=== PATIENT | male | born 1950 | race Caucasian/White ===

== ENCOUNTER → 2018-11-17 | Outpatient (CLI) | payer OTHER, MEDICARE ==
[~2018-11-17] MED LIST: CELE200 PO; LORA1 PO; METPHE20 PO; MORP15ER PO; PROC10 PO; QUALAQUIN PO; VARDENAFIL PO; [UNRECOGNIZED DRUG - REMARK]
[2018-11-18 03:07] LABS: HBSAG SCREEN Negative (Negative); HCV ANTIBODY >11.0 (0.0-0.9); HEP A AB, IGM Negative (Negative); HEP B CORE AB, IGM Negative (Negative)
== END | disposition home or self-care (01) ==
LOC: OLS 11:40 → LAB SHORT 11:40 → LAB FUT 11-10 16:15
PROVIDERS: Orthopaedic Surgery
DX: B18.2 Chronic viral hepatitis C (principal); Z94.4 Liver transplant status
CPT/HCPCS: 36415; 80074; 86803

== ENCOUNTER 2020-02-13 00:22 | Day surgery (SDC) | payer MEDICARE, OTHER | END 2020-02-13 22:55 | disposition home or self-care (01) | LOC: ATC 00:22 | DX: C83.38 Diffuse large B-cell lymphoma, lymph nodes of multiple sites (principal); E11.9 Type 2 diabetes mellitus without complications; G47.33 Obstructive sleep apnea (adult) (pediatric); Z94.4 Liver transplant status; Z79.4 Long term (current) use of insulin; Z79.899 Other long term (current) drug therapy; Z88.5 Allergy status to narcotic agent; Z91.041 Radiographic dye allergy status; Z87.891 Personal history of nicotine dependence | CPT/HCPCS: J1642 ==

== ENCOUNTER 2020-03-26 01:56 | Inpatient (IN) | payer MEDICARE, OTHER ==
[~2020-03-26] VITALS: Ht 182.9 cm; Wt 119.5 kg
[~2020-03-26 01:56] MED LIST changes: +ACYC800 PO; +ALLO300 PO; +ASPI81CH PO; +ATOR20 PO; +BASAGLAR K100 UNIT/1 SC; +CALCIUM CIT 311 EACH PO; +CEFD300 PO; +CLOP75 PO; +Cymbalta20 MG PO; +DULO60 PO; +GLIM4 PO; +JARDIANCE25 MG PO; +LIDO700A20 TOP; +METF500 PO; +NOVOLOG FL100 UNIT/3 SC; +ONDA8 PO; +OXYC10ER PO; +OXYC5 PO; +PEPCID40 MG PO; +POLYETHYLENE G500 G1 PO; +PRED20 PO; +PROBIOTIC PO; +PROC5 PO; +PROGRAF0.5 MG PO; +Prochlorperazin10 MG PO; +SENN187 PO; +TACR1 PO; +Vitamin D2000 UNIT PO
[2020-03-26 03:07] LABS: BASOPHILS ABSOLUTE AUTO 0.09 K/mm3 (0.00-0.23); BASOPHILS PERCENT AUTO 1 % (0-2); EOSINOPHILS ABSOLUTE AUTO 0.01 K/mm3 (0.00-0.68); EOSINOPHILS PERCENT AUTO 0 % (0-6); Hematocrit 34.6 % (37.0-53.0); Hemoglobin 11.3 g/dL (13.5-17.5); IMMATURE GRAN ABSOLUTE AUTO 1.15 K/mm3 (0.00-0.10); IMMATURE GRAN PERCENT AUTO 9 % (0-1); LYMPHOCYTES ABSOLUTE AUTO 0.24 K/mm3 (0.84-5.20); LYMPHOCYTES PERCENT AUTO 2 % (21-46); MONOCYTES PERCENT AUTO 6 % (4-13); Mean Corpuscular HGB 30.3 pg (26.0-34.0); Mean Corpuscular HGB Conc 32.7 g/dL (31.5-36.5); Mean Corpuscular Volume 93 fL (80-100); Mean Platelet Volume 10.8 fL (9.1-12.4); NEUTROPHILS ABSOLUTE AUTO 10.42 K/mm3 (1.96-9.15); NEUTROPHILS PERCENT AUTO 82 % (41-73); NRBC ABSOLUTE 0.11 K/mm3 (0.00-0.02); NRBC Auto 0.9 /100 WBC (0.0-0.2); Platelet Count 101 K/mm3 (150-400); RDW Coefficient Variation 17.1 % (11.7-14.2); RDW Standard Deviation 54.2 fL (35.1-46.3); Red Blood Cell Count 3.73 M/mm3 (4.30-5.90); White Blood Cell Count 12.71 K/mm3 (4.00-11.30)
[2020-03-26 03:27] LABS: Alanine Aminotransfer (ALT/SGP 33 U/L (12-78); Albumin/Globulin Ratio 0.9 (0.8-1.8); Alk Phos 210 U/L (50-136); Anion Gap 10 mmol/L (6-16); Aspartate Aminotrans (AST/SGOT 33 U/L (12-37); Bilirubin, Total 0.7 mg/dL (0.1-1.0); Blood Urea Nitrogen 15 mg/dL (8-24); Bun/Creatinine Ratio 16.8 (12.0-20.0); CO2, Blood 24 mmol/L (21-32); Calcium, Blood 8.6 mg/dL (8.5-10.1); Chloride, Blood 105 mmol/L (98-108); Globulin, Blood 3.4 g/dL (2.2-4.0); Glomerular Filtration Rate >60 (60-); Glucose, Blood 226 mg/dL (70-99); Potassium, Blood 3.8 mmol/L (3.5-5.5); Sodium, Blood 139 mmol/L (136-145); Total Protein, Blood 6.4 g/dL (6.4-8.2); Troponin I 0.015 ng/mL (0.000-0.040)
[2020-03-26 03:29] LABS: BAND PERCENT MAN 2 % (0-8); BASOPHILS PERCENT MAN 0 % (0-2); EOSINOPHILS PERCENT MAN 0 % (0-6); LYMPHOCYTES PERCENT MAN 4 % (21-46); METAMYELOCYTE ABSOLUTE MAN 0.12 K/mm3 (0.00-0.00); METAMYELOCYTE PERCENT MAN 1 % (0-0); MONOCYTES PERCENT MAN 4 % (4-13); NEUTROPHILS ABSOLUTE MAN 11.56 K/mm3 (1.96-9.15); SEG NEUTROPHILS PERCENT MAN 89 % (41-73); TOTAL CELLS COUNTED 100
[2020-03-26 05:03] LABS: Influenza A, PCR Negative (NEGATIVE); Influenza B, PCR Negative (NEGATIVE); Resp Syncytial Virus, PCR Negative (NEGATIVE); SARS-Cov-2 (COVID-19) PCR, MMC Negative (NEGATIVE)
[2020-03-26 05:29] LABS: Source, Urine Clean Catch
[2020-03-26 05:37] LABS: Appearance, Urine Clear (Clear); Bilirubin, Urine Neg (Neg); Blood, Urine 1+ (Neg); Color, Urine Yellow (P-Yellow); Glucose Qualitative, Urine 4+ (Neg); Ketones, Urine 2+ (Neg); Leukocyte Esterase, Urine Neg (Neg); Nitrite, Urine Neg (Neg); Protein, Urine 1+ (Neg); Specific Gravity, Urine 1.015 (1.003-1.022); Urobilinogen, Urine NORM (Normal)
[2020-03-26 05:55] LABS: Bacteria Not Seen /hpf; Red Blood Cells, Urine 0-2 /hpf (0-2); Squamous Epithelial Cells Rare /hpf (Few); White Blood Cells, Urine 0-2 /hpf (0-5)
--- NOTE | 2020-03-26 06:44 | NUR ---
PT TO ICU 12 FROM ED. PT IS ON 6LNC. SATTING WELL. VSS, SBP IN THE 130S, HR 80S. PT HAS A MEDIPORT THAT IS CURRENTLY ACCESSED. PT NEEDS A PE STUDY HOWEVER UNSURE IF MEDIPORT IS A POWER PORT. PT WILL NEED LINE ACCESS. ATTEMPTED FOR IV ACCESS X 1. UNSUCCESSFUL. LABS WERE SENT VIA MEDIPORT. PT IS A&O. COOPERATIVE WITH CARE. PER ASA AND PLAVIX ARE BEING HELD D/T PROCEDURE LATER THIS WEEK WITH [facility] TO DETERMINE POSS CA KRISH. WILL PASS REPORT TO ONCOMING RN
--- NOTE | 2020-03-26 08:40 | NUR ---
ASSUMED CARE / DR SALINAS: REPORT RECEIVED FROM JOCELYN Malone RN. ASSUMED CARE OF THIS PT AT APPROX 0700. ON ASSESSMENT, THE PT IS AWAKE, A&O. HE IS PLEASANT & COOPERATIVE W/ CARE. C/O PAIN TO ABD, R SIDE/ FLANK THAT IS WORSENED W/ PALPATION. LS ARE DIM IN BASES, COARSENESS NOTED TO LLL. PT ON RA W/ O2 SATS > 92%. DOES NOT WEAR HOME O2. MONITOR SHOWS SR W/ FIRST DEGREE HB, HR 80s, BP STABLE. PT HAS NO CURRENT GI COMPLAINTS, STS FEELING NAUSEOUS W/ PO INTAKE PRIOR TO ADMISSION. VOIDS W/O DIFFICULTY USING URINAL AT BEDSIDE. THE PT IS AMBULATORY & IS ABLE TO TRANSFER W/ MIN ASSIST. CALLS APPROPRIATELY. SKIN CONDITION OVERALL CDI. BRUISING NOTED TO R SHOULDER & LOWER BACK, ABRASION TO L ELBOW R/T FALL AT HOME. SKIN OVERALL INTACT. PROVIDER AT BEDSIDE TO ALEX PT. INSULIN REGIMEN HAS BEEN DISCUSSED & ORDERS HAVE BEEN UPDATED. SHE STS PT CAN START A CLEAR LIQUID DIET & THAT LOVENOX CAN BE GIVEN THIS ADMISSION DESPITE POSSIBLE LUMBAR PUNCTURE SCHEDULED FOR END OF THE WEEK. SHE IS OKAY THAT THE PT HAS NO VASCULAR ACCESS ASIDE FROM MEDIPORT & WILL BE DISCONTINUING CT-PE STUDY ORDERS & PLACING CT W/O CONTRAST ORDERS. WILL CONTINUE TO MONITOR & UPDATE NEEDED.
--- NOTE | 2020-03-26 10:27 | NUR ---
Patient provided student nurse permission to assist in caring for him today 03/16/20.
[2020-03-26 10:56] LABS: International Normalized Ratio 1.07; Prothrombin Time Results 11.4 Sec (9.7-11.5)
--- NOTE | 2020-03-26 12:04 | NUR ---
DR SALINAS UPDATE: CALL TO PROVIDER REGARDING PT DIET ORDERS. HE STS HE WILL NOT EAT ANY OF THE CLEAR LIQUID DIET OPTIONS. PROVIDER HAS REVIEWED PT's CT SCAN & IS OKAY FOR DIET TO BE ADVANCED TO ADA. THIS RN HAS CONTINUED TO HOLD LOVENOX THIS AM R/T NEW ORDERS FOR CT-LUMBAR PUNCTURE PLACED BY DR SALINAS. INSULIN GLARGINE ALSO HELD R/T PT's GLUCOSE LEVEL DECREASING SIGNIFICANTLY SINCE AM LABS & HIS STATED LACK OF APPETITE/ LOW PROBABILITY OF TAKING PO INTAKE.
--- NOTE | 2020-03-26 12:18 | NUR ---
TRANSFER TO MEDICAL FLOOR: REPORT HAS BEEN GIVEN TO EMY Olvera RN TO ASSUME CARE. CHART, MEDS & ALL BELONGINGS HAVE BEEN TAKEN TO ROOM 334 W/ PT. PT TAKEN OUT VIA WC BY BHARATHI BENTLEY & KEVIN, BRIDGE ATTACHER, AT APPROX 1215. PT's JORDON HAS BEEN CONTACTED & MADE AWARE OF TX BY THIS RN.
[2020-03-26] MEDS ORDERED: METO25ER PO (16:40)
[2020-03-26] MEDS ORDERED: LORA10ER PO (16:42)
[2020-03-26] MEDS ORDERED: PANT40 PO (16:43)
[2020-03-26] MEDS ORDERED: MAGNESIUM OXID500 MG PO (16:51)
[2020-03-26] MEDS ORDERED: Levitra20 MG PO (16:52)
[2020-03-26] MEDS ORDERED: LEVO750 PO (16:54)
[2020-03-26] MEDS ORDERED: HYOS.125 SL (16:56)
[2020-03-26] MEDS ORDERED: ALBU8HFA2 INH (16:59)
[2020-03-26] MEDS ORDERED: CLOB.05TO TOP (17:02)
--- NOTE | 2020-03-26 17:02 | NUR ---
SHIFT SUMMARY PATIENT ALERT AND ORIENTED THROUGHOUT THIS SHIFT. PATIENT TO THE FLOOR FROM THE ICU MID-SHIFT. PATIENT TO THE FLOOR VIA WHEELCHAIR. PATIENT MEDICATED THROUGHOUT THIS SHIFT FOR PAIN IN THE MID-ABDOMEN. PATIENT IS INDEPENDENT IN THE ROOM. PATIENT REMAINS ON IV ANTIBIOTICS THROUGHOUT THIS SHIFT. PATIENT CURRENTLY SITTING UP IN BED WATCHING TELEVISION.
[2020-03-26] MEDS ORDERED: Masophen325 MG PO (17:04)
[2020-03-26] MEDS ORDERED: NEXAFED30 MG PO (17:05)
--- NOTE | 2020-03-27 04:43 | NUR ---
SHIFT SUMMARY NO ACUTE CHANGES THIS SHIFT, MEDICATED FOR PAIN PER MAR, SLEPT ON/OFF T/O THE NIGHT, PT UP WATCHING TV AT THIS TIME, CALL LIGHT IN REACH, WILL CONT TO MONITOR UNTIL REPORT GIVEN TO DAY RN.
[2020-03-27 05:29] LABS: Hematocrit 31.1 % (37.0-53.0); Hemoglobin 9.8 g/dL (13.5-17.5); Mean Corpuscular HGB 29.7 pg (26.0-34.0); Mean Corpuscular HGB Conc 31.5 g/dL (31.5-36.5); Mean Corpuscular Volume 94 fL (80-100); Mean Platelet Volume 10.8 fL (9.1-12.4); NRBC ABSOLUTE 0.04 K/mm3 (0.00-0.02); NRBC Auto 0.5 /100 WBC (0.0-0.2); Platelet Count 91 K/mm3 (150-400); RDW Standard Deviation 54.8 fL (35.1-46.3); White Blood Cell Count 8.06 K/mm3 (4.00-11.30)
[2020-03-27 05:51] LABS: Alanine Aminotransfer (ALT/SGP 30 U/L (12-78); Albumin, Blood 2.6 g/dL (3.4-5.0); Albumin/Globulin Ratio 0.9 (0.8-1.8); Alk Phos 171 U/L (50-136); Anion Gap 7 mmol/L (6-16); Aspartate Aminotrans (AST/SGOT 29 U/L (12-37); Bilirubin, Total 0.8 mg/dL (0.1-1.0); Blood Urea Nitrogen 14 mg/dL (8-24); CO2, Blood 26 mmol/L (21-32); Calcium, Blood 8.2 mg/dL (8.5-10.1); Chloride, Blood 108 mmol/L (98-108); Creatinine, Blood 0.78 mg/dL (0.60-1.20); Glomerular Filtration Rate >60 (60-); Glucose, Blood 142 mg/dL (70-99); Potassium, Blood 3.9 mmol/L (3.5-5.5); Sodium, Blood 141 mmol/L (136-145); Total Protein, Blood 5.6 g/dL (6.4-8.2)
[2020-03-27 05:53] LABS: BAND PERCENT MAN 4 % (0-8); BASOPHILS PERCENT MAN 0 % (0-2); EOSINOPHILS ABSOLUTE MAN 0.24 K/mm3 (0.00-0.68); EOSINOPHILS PERCENT MAN 3 % (0-6); LYMPHOCYTES ABSOLUTE MAN 0.48 K/mm3 (0.84-5.20); LYMPHOCYTES PERCENT MAN 6 % (21-46); METAMYELOCYTE ABSOLUTE MAN 0.16 K/mm3 (0.00-0.00); METAMYELOCYTE PERCENT MAN 2 % (0-0); MONOCYTES ABSOLUTE MAN 0.72 K/mm3 (0.16-1.47); MONOCYTES PERCENT MAN 9 % (4-13); NEUTROPHILS ABSOLUTE MAN 6.44 K/mm3 (1.96-9.15); SEG NEUTROPHILS PERCENT MAN 76 % (41-73); TOTAL CELLS COUNTED 100
[2020-03-27] MEDS ORDERED: OXYCONTIN20 M1 PO (08:30)
[2020-03-27] MEDS ORDERED: OXAYDO5 M1 PO (08:31)
[2020-03-27] MEDS ORDERED: GUAI600T33 PO (11:16)
[2020-03-27] MEDS ORDERED: LEVO750 PO (11:16)
--- NOTE | 2020-03-27 15:10 | NUR ---
DISCHARGE PT IS A&O. PT ABLE TO MAKE NEEDS KNOWN AND INDEPENDENT IN ROOM. AT START OF SHIFT PT COMPLAINED OF PAIN. MEDICATED PER EMAR. WHEN DR WAS ROUNDING, DR NOTIFIED OF HOME MEDICATION REGEMENT, DR CHANGED ORDERS TO MATCH, HOME ORDERS. PT APPRICIATED THE CHANGE. WENT OVER DC PACKET WITH PT. DARNELL ROMAN DEACCESSED METAPORT. PT TAKEN DOWN STAIRS VIA WHEELCHAIR. PT IS AWARE OF SCHEDULE APPOINTMENTS.
== END 2020-03-27 13:15 | disposition home or self-care (01) | DRG 871 ==
LOC: ER 01:56 → ERHOLD 04:22 → ICUW 05:32 → MEDS 12:14
PROVIDERS: Emergency Medicine; ADMIT Internal Medicine
DX: A41.9 Sepsis, unspecified organism (principal); J96.01 Acute respiratory failure with hypoxia; J18.9 Pneumonia, unspecified organism; C85.10 Unspecified B-cell lymphoma, unspecified site; Z94.4 Liver transplant status; Z86.73 Personal history of transient ischemic attack (TIA), and cerebral infarction without residual deficits; B18.2 Chronic viral hepatitis C; Z20.822 Contact with and (suspected) exposure to COVID-19; Z85.05 Personal history of malignant neoplasm of liver; Z87.891 Personal history of nicotine dependence; Z85.47 Personal history of malignant neoplasm of testis; I25.10 Atherosclerotic heart disease of native coronary artery without angina pectoris; Z95.1 Presence of aortocoronary bypass graft; E11.65 Type 2 diabetes mellitus with hyperglycemia
CPT/HCPCS: 0241U; 36415; 71045; 71250; 73030; 74176; 80053; 81001; 82947; 83605; 83735; 83880; 84484; 85025; 85379; 85610; 87040; 96365; 96375; 99285-25; A9270; J1170; J1642; J1885; J1956; J2543; J3010; J7030; J7507

== ENCOUNTER 2020-11-20 16:40 | Emergency (ER) | payer MEDICARE, OTHER ==
[~2020-11-20] VITALS: Ht 182.9 cm; Wt 103.0 kg
[~2020-11-20 16:40] MED LIST changes: +ALBU8HFA2 INH; +CLOB.05TO TOP; +GUAI600T33 PO; +HYOS.125 SL; +LEVO750 PO; +LORA10ER PO; +Levitra20 MG PO; +MAGNESIUM OXID500 MG PO; +METO25ER PO; +Masophen325 MG PO; +NEXAFED30 MG PO; +OXAYDO5 M1 PO; +OXYCONTIN20 M1 PO; +PANT40 PO
== END 2020-11-20 18:57 | disposition home or self-care (01) ==
LOC: ER 16:40
DX: U07.1 COVID-19 (principal); D84.9 Immunodeficiency, unspecified; E11.9 Type 2 diabetes mellitus without complications; Z79.899 Other long term (current) drug therapy; Z79.4 Long term (current) use of insulin; Z87.891 Personal history of nicotine dependence
CPT/HCPCS: 99282-25; J1642; M0243; Q0243

== ENCOUNTER 2022-02-15 11:34 | Emergency (ER) | payer OTHER, MEDICARE ==
[~2022-02-15] VITALS: Ht 185.4 cm; Wt 113.4 kg
== END 2022-02-15 12:43 | disposition home or self-care (01) ==
LOC: ER 11:34
DX: R07.81 Pleurodynia (principal); W01.0XXA Fall on same level from slipping, tripping and stumbling without subsequent striking against object, initial encounter; E11.9 Type 2 diabetes mellitus without complications; Z79.899 Other long term (current) drug therapy; Z79.4 Long term (current) use of insulin; Z87.891 Personal history of nicotine dependence
CPT/HCPCS: 99283

== ENCOUNTER → 2022-02-17 | Outpatient (CLI) | payer MEDICARE, OTHER ==
[2022-02-18 14:38] LABS: Adenovirus F 40/41 Not Detected (NOT DETECT); Astrovirus Not Detected (NOT DETECT); Campylobacter Sp Not Detected (NOT DETECT); Cryptosporidium Not Detected (NOT DETECT); Cyclospora Cayetanensis Not Detected (NOT DETECT); E. Coli O157 Not Detected (NOT DETECT); Entamoeba Histolytica Not Detected (NOT DETECT); Enteroaggregative E. coli-EAEC Not Detected (NOT DETECT); Enteropathogenic E. coli-EPEC Not Detected (NOT DETECT); Enterotoxigenic E. coli-ETEC Not Detected (NOT DETECT); Giardia Lamblia Not Detected (NOT DETECT); Norovirus GI/GII Not Detected (NOT DETECT); Plesiomonas Shigelloides Not Detected (NOT DETECT); Rotavirus A Not Detected (NOT DETECT); Salmonella Sp Not Detected (NOT DETECT); Sapovirus Not Detected (NOT DETECT); Shiga Toxin-prod E. coli-STEC Not Detected (NOT DETECT); Shigella/Enteroin E. coli-EIEC Not Detected (NOT DETECT); Vibrio Cholerae Not Detected (NOT DETECT); Vibrio Sp Not Detected (NOT DETECT); Yersinia Enterocolitica Not Detected (NOT DETECT)
== END | disposition home or self-care (01) ==
LOC: LAB SHORT 17:15
PROVIDERS: Family Medicine
DX: R19.7 Diarrhea, unspecified (principal)
CPT/HCPCS: 87507

== ENCOUNTER 2022-09-22 07:36 | Day surgery (SDC) | payer MEDICARE, OTHER | END 2022-09-22 23:04 | disposition home or self-care (01) | LOC: WOUND 07:36 | DX: L89.891 Pressure ulcer of other site, stage 1 (principal); E11.621 Type 2 diabetes mellitus with foot ulcer; L97.522 Non-pressure chronic ulcer of other part of left foot with fat layer exposed; E11.69 Type 2 diabetes mellitus with other specified complication; I73.9 Peripheral vascular disease, unspecified | CPT/HCPCS: G0463 ==

== ENCOUNTER 2022-09-29 00:38 | Day surgery (SDC) | payer MEDICARE, OTHER | END 2022-09-29 23:03 | disposition home or self-care (01) | LOC: WOUND | DX: E11.621 Type 2 diabetes mellitus with foot ulcer (principal); E11.69 Type 2 diabetes mellitus with other specified complication; E11.51 Type 2 diabetes mellitus with diabetic peripheral angiopathy without gangrene | CPT/HCPCS: G0463 ==

== ENCOUNTER 2022-10-13 02:26 | Day surgery (SDC) | payer MEDICARE, OTHER | END 2022-10-13 23:02 | disposition home or self-care (01) | LOC: WOUND 02:26 | DX: E11.621 Type 2 diabetes mellitus with foot ulcer (principal); L97.522 Non-pressure chronic ulcer of other part of left foot with fat layer exposed; I87.2 Venous insufficiency (chronic) (peripheral); E11.51 Type 2 diabetes mellitus with diabetic peripheral angiopathy without gangrene | CPT/HCPCS: A9270 ==

== ENCOUNTER → 2022-10-14 | Outpatient (CLI) | payer MEDICARE, OTHER ==
[2022-10-14 15:32] LABS: C DIFFICILE DNA NEGATIVE (Negative)
== END | disposition home or self-care (01) ==
LOC: LAB SHORT 10:30 → LAB 10:30
PROVIDERS: Family Medicine
DX: R19.7 Diarrhea, unspecified (principal)
CPT/HCPCS: 87493

== ENCOUNTER 2022-10-20 02:05 | Day surgery (SDC) | payer MEDICARE, OTHER | END 2022-10-20 22:43 | disposition home or self-care (01) | LOC: WOUND 02:05 | DX: E11.621 Type 2 diabetes mellitus with foot ulcer (principal); E11.40 Type 2 diabetes mellitus with diabetic neuropathy, unspecified; L97.522 Non-pressure chronic ulcer of other part of left foot with fat layer exposed; E11.51 Type 2 diabetes mellitus with diabetic peripheral angiopathy without gangrene | CPT/HCPCS: A9270 ==

== ENCOUNTER 2022-10-27 02:17 | Day surgery (SDC) | payer MEDICARE, OTHER | END 2022-10-27 23:01 | disposition home or self-care (01) | LOC: WOUND 02:17 | DX: E11.621 Type 2 diabetes mellitus with foot ulcer (principal); L97.522 Non-pressure chronic ulcer of other part of left foot with fat layer exposed; E11.69 Type 2 diabetes mellitus with other specified complication; E11.51 Type 2 diabetes mellitus with diabetic peripheral angiopathy without gangrene | CPT/HCPCS: A9270; G0463 ==

== ENCOUNTER 2022-11-03 00:48 | Day surgery (SDC) | payer MEDICARE, OTHER | END 2022-11-03 22:49 | disposition home or self-care (01) | LOC: WOUND 00:48 | DX: E11.621 Type 2 diabetes mellitus with foot ulcer (principal); L97.522 Non-pressure chronic ulcer of other part of left foot with fat layer exposed; I87.2 Venous insufficiency (chronic) (peripheral); E11.40 Type 2 diabetes mellitus with diabetic neuropathy, unspecified; E11.51 Type 2 diabetes mellitus with diabetic peripheral angiopathy without gangrene | CPT/HCPCS: G0463 ==

== ENCOUNTER 2022-11-10 01:30 | Day surgery (SDC) | payer MEDICARE, OTHER | END 2022-11-10 22:56 | disposition home or self-care (01) | LOC: WOUND 01:30 | DX: E11.621 Type 2 diabetes mellitus with foot ulcer (principal); L97.522 Non-pressure chronic ulcer of other part of left foot with fat layer exposed; E11.69 Type 2 diabetes mellitus with other specified complication; E11.51 Type 2 diabetes mellitus with diabetic peripheral angiopathy without gangrene | CPT/HCPCS: A9270; G0463 ==

== ENCOUNTER 2022-11-12 01:23 | Day surgery (SDC) | payer MEDICARE, OTHER ==
[2022-11-12 14:09] VITALS: BP 131/77
[2022-11-12] MEDS ORDERED: PRENATAL TABLE1 EAC2 PO (15:55)
[2022-11-12] MEDS ORDERED: INSULANI SC ×2 (15:56)
[2022-11-12] MEDS ORDERED: NITR.4SL SL (15:56)
[2022-11-12] MEDS ORDERED: CLOP75 PO (15:56)
[2022-11-12] MEDS ORDERED: BUDESONIDE EC3 M1 PO (15:58)
== END 2022-11-12 14:17 | disposition home or self-care (01) ==
LOC: ATC 01:23
DX: C83.33 Diffuse large B-cell lymphoma, intra-abdominal lymph nodes (principal); K21.9 Gastro-esophageal reflux disease without esophagitis; Z87.891 Personal history of nicotine dependence; E11.40 Type 2 diabetes mellitus with diabetic neuropathy, unspecified; I10 Essential (primary) hypertension; G47.33 Obstructive sleep apnea (adult) (pediatric); I25.10 Atherosclerotic heart disease of native coronary artery without angina pectoris; F33.1 Major depressive disorder, recurrent, moderate; Z85.47 Personal history of malignant neoplasm of testis
CPT/HCPCS: 96523; J1642

== ENCOUNTER 2022-12-01 01:56 | Day surgery (SDC) | payer MEDICARE, OTHER ==
[~2022-12-01 01:56] MED LIST changes: +BUDESONIDE EC3 M1 PO; +INSULANI SC; +NITR.4SL SL; +PRENATAL TABLE1 EAC2 PO
== END 2022-12-01 23:03 | disposition home or self-care (01) ==
LOC: WOUND 01:56
DX: E11.621 Type 2 diabetes mellitus with foot ulcer (principal); L97.522 Non-pressure chronic ulcer of other part of left foot with fat layer exposed; E11.51 Type 2 diabetes mellitus with diabetic peripheral angiopathy without gangrene; E11.40 Type 2 diabetes mellitus with diabetic neuropathy, unspecified
CPT/HCPCS: G0463

== ENCOUNTER 2022-12-22 00:54 | Day surgery (SDC) | payer MEDICARE, OTHER | END 2022-12-22 23:13 | disposition home or self-care (01) | LOC: WOUND 00:54 | DX: E11.621 Type 2 diabetes mellitus with foot ulcer (principal); L97.522 Non-pressure chronic ulcer of other part of left foot with fat layer exposed; E11.51 Type 2 diabetes mellitus with diabetic peripheral angiopathy without gangrene | CPT/HCPCS: A9270; G0463 ==

== ENCOUNTER 2022-12-25 01:37 | Day surgery (SDC) | payer MEDICARE, OTHER ==
[2022-12-25 08:58] VITALS: BP 130/67
[2022-12-25 09:26] LABS: BASOPHILS ABSOLUTE AUTO 0.04 K/mm3 (0.00-0.23); BASOPHILS PERCENT AUTO 1 % (0-2); EOSINOPHILS ABSOLUTE AUTO 0.64 K/mm3 (0.00-0.68); EOSINOPHILS PERCENT AUTO 8 % (0-6); Hematocrit 44.1 % (37.0-53.0); Hemoglobin 14.4 g/dL (13.5-17.5); IMMATURE GRAN ABSOLUTE AUTO 0.05 K/mm3 (0.00-0.10); IMMATURE GRAN PERCENT AUTO 1 % (0-1); LYMPHOCYTES ABSOLUTE AUTO 0.87 K/mm3 (0.84-5.20); LYMPHOCYTES PERCENT AUTO 11 % (21-46); MONOCYTES ABSOLUTE AUTO 0.81 K/mm3 (0.16-1.47); MONOCYTES PERCENT AUTO 10 % (4-13); Mean Corpuscular HGB 30.2 pg (26.0-34.0); Mean Corpuscular HGB Conc 32.7 g/dL (31.5-36.5); Mean Corpuscular Volume 93 fL (80-100); Mean Platelet Volume 9.4 fL (9.1-12.4); NEUTROPHILS PERCENT AUTO 70 % (41-73); Platelet Count 251 K/mm3 (150-400); RDW Coefficient Variation 14.6 % (11.7-14.2); RDW Standard Deviation 49.5 fL (35.1-46.3); Red Blood Cell Count 4.77 M/mm3 (4.30-5.90); White Blood Cell Count 7.91 K/mm3 (4.00-11.30)
[2022-12-25 10:06] LABS: Albumin, Blood 2.7 g/dL (3.4-5.0); Albumin/Globulin Ratio 0.6 (0.8-1.8); Bilirubin, Total 0.7 mg/dL (0.1-1.0); Bun/Creatinine Ratio 20.3 (12.0-20.0); Calcium, Blood 8.7 mg/dL (8.5-10.1); Creatinine, Blood 0.84 mg/dL (0.60-1.20); Globulin, Blood 4.6 g/dL (2.2-4.0); Potassium, Blood 4.1 mmol/L (3.5-5.5); Thyroid Stimulating Hormone 1.91 uIU/mL (0.360-4.800); Total Protein, Blood 7.3 g/dL (6.4-8.2)
== END 2022-12-25 09:10 | disposition home or self-care (01) ==
LOC: ATC 01:37
PROVIDERS: Family Medicine
DX: C83.33 Diffuse large B-cell lymphoma, intra-abdominal lymph nodes (principal); I10 Essential (primary) hypertension; R53.83 Other fatigue; R07.89 Other chest pain; R06.09 Other forms of dyspnea; I73.9 Peripheral vascular disease, unspecified; E11.621 Type 2 diabetes mellitus with foot ulcer; L97.522 Non-pressure chronic ulcer of other part of left foot with fat layer exposed
CPT/HCPCS: 36591; 71046; 73630; 80053; 83880; 84443; 85025; 85379; J1642

== ENCOUNTER 2022-12-29 01:55 | Day surgery (SDC) | payer MEDICARE, OTHER | END 2022-12-29 22:54 | disposition home or self-care (01) | LOC: WOUND 01:55 | DX: E11.621 Type 2 diabetes mellitus with foot ulcer (principal); L97.522 Non-pressure chronic ulcer of other part of left foot with fat layer exposed; E11.51 Type 2 diabetes mellitus with diabetic peripheral angiopathy without gangrene | CPT/HCPCS: G0463 ==

== ENCOUNTER 2023-01-08 03:20 | Day surgery (SDC) | payer MEDICARE, OTHER | END 2023-01-08 22:37 | disposition home or self-care (01) | LOC: WOUND 03:20 | DX: E11.621 Type 2 diabetes mellitus with foot ulcer (principal); L97.522 Non-pressure chronic ulcer of other part of left foot with fat layer exposed; E11.51 Type 2 diabetes mellitus with diabetic peripheral angiopathy without gangrene; E11.69 Type 2 diabetes mellitus with other specified complication | CPT/HCPCS: G0463 ==

== ENCOUNTER 2023-01-12 02:07 | Day surgery (SDC) | payer MEDICARE, OTHER ==
[2023-01-12 11:44] VITALS: BP 112/67
[2023-01-12 13:58] VITALS: BP 137/74
== END 2023-01-12 14:02 | disposition home or self-care (01) ==
LOC: ATC 02:07
DX: I25.118 Atherosclerotic heart disease of native coronary artery with other forms of angina pectoris (principal); R06.09 Other forms of dyspnea; M17.12 Unilateral primary osteoarthritis, left knee; E08.40 Diabetes mellitus due to underlying condition with diabetic neuropathy, unspecified; I10 Essential (primary) hypertension; K21.9 Gastro-esophageal reflux disease without esophagitis; G47.33 Obstructive sleep apnea (adult) (pediatric); F33.1 Major depressive disorder, recurrent, moderate; K55.059 Acute (reversible) ischemia of intestine, part and extent unspecified; R10.84 Generalized abdominal pain; R79.1 Abnormal coagulation profile; J43.9 Emphysema, unspecified; R91.1 Solitary pulmonary nodule
CPT/HCPCS: 71260; 96523; J1642; Q9967

== ENCOUNTER 2023-01-15 05:21 | Day surgery (SDC) | payer MEDICARE, OTHER | END 2023-01-15 22:48 | disposition home or self-care (01) | LOC: WOUND 05:21 | DX: E11.621 Type 2 diabetes mellitus with foot ulcer (principal); L97.522 Non-pressure chronic ulcer of other part of left foot with fat layer exposed; E11.69 Type 2 diabetes mellitus with other specified complication; E11.51 Type 2 diabetes mellitus with diabetic peripheral angiopathy without gangrene | CPT/HCPCS: G0463 ==

== ENCOUNTER 2023-01-22 05:30 | Day surgery (SDC) | payer MEDICARE, OTHER | END 2023-01-22 22:51 | disposition home or self-care (01) | LOC: WOUND 05:30 | DX: E11.621 Type 2 diabetes mellitus with foot ulcer (principal); L97.522 Non-pressure chronic ulcer of other part of left foot with fat layer exposed; E11.69 Type 2 diabetes mellitus with other specified complication; E11.51 Type 2 diabetes mellitus with diabetic peripheral angiopathy without gangrene | CPT/HCPCS: G0463 ==

== ENCOUNTER 2023-01-29 02:06 | Day surgery (SDC) | payer MEDICARE, OTHER | END 2023-01-29 22:53 | disposition home or self-care (01) | LOC: WOUND 02:06 | DX: E11.621 Type 2 diabetes mellitus with foot ulcer (principal); L97.522 Non-pressure chronic ulcer of other part of left foot with fat layer exposed; E11.69 Type 2 diabetes mellitus with other specified complication; E11.51 Type 2 diabetes mellitus with diabetic peripheral angiopathy without gangrene; E11.40 Type 2 diabetes mellitus with diabetic neuropathy, unspecified | CPT/HCPCS: A9270; G0463 ==

== ENCOUNTER 2023-02-20 03:11 | Day surgery (SDC) | payer MEDICARE, OTHER | END 2023-02-20 23:12 | disposition home or self-care (01) | LOC: WOUND 03:11 | DX: E11.621 Type 2 diabetes mellitus with foot ulcer (principal); L97.522 Non-pressure chronic ulcer of other part of left foot with fat layer exposed; E11.42 Type 2 diabetes mellitus with diabetic polyneuropathy; E11.51 Type 2 diabetes mellitus with diabetic peripheral angiopathy without gangrene; E11.69 Type 2 diabetes mellitus with other specified complication | CPT/HCPCS: G0463 ==

== ENCOUNTER 2023-02-23 03:34 | Day surgery (SDC) | payer MEDICARE, OTHER ==
[2023-02-23 10:37] VITALS: BP 130/75
== END 2023-02-23 10:39 | disposition home or self-care (01) ==
LOC: ATC 03:34
DX: C83.33 Diffuse large B-cell lymphoma, intra-abdominal lymph nodes (principal); E11.9 Type 2 diabetes mellitus without complications; Z88.5 Allergy status to narcotic agent; Z91.041 Radiographic dye allergy status; Z87.891 Personal history of nicotine dependence; Z79.84 Long term (current) use of oral hypoglycemic drugs; F10.20 Alcohol dependence, uncomplicated
CPT/HCPCS: 96523; J1642

== ENCOUNTER 2023-02-26 02:58 | Day surgery (SDC) | payer MEDICARE, OTHER | END 2023-02-26 23:00 | disposition home or self-care (01) | LOC: WOUND 02:58 | DX: E11.621 Type 2 diabetes mellitus with foot ulcer (principal); L97.522 Non-pressure chronic ulcer of other part of left foot with fat layer exposed; E11.69 Type 2 diabetes mellitus with other specified complication; E11.51 Type 2 diabetes mellitus with diabetic peripheral angiopathy without gangrene; E11.40 Type 2 diabetes mellitus with diabetic neuropathy, unspecified | CPT/HCPCS: G0463 ==

== ENCOUNTER 2023-03-05 04:50 | Day surgery (SDC) | payer MEDICARE, OTHER | END 2023-03-05 23:08 | disposition home or self-care (01) | LOC: WOUND 04:50 | DX: E11.621 Type 2 diabetes mellitus with foot ulcer (principal); L97.522 Non-pressure chronic ulcer of other part of left foot with fat layer exposed; E11.69 Type 2 diabetes mellitus with other specified complication; E11.51 Type 2 diabetes mellitus with diabetic peripheral angiopathy without gangrene; E11.40 Type 2 diabetes mellitus with diabetic neuropathy, unspecified | CPT/HCPCS: G0463 ==

== ENCOUNTER 2023-03-19 04:55 | Day surgery (SDC) | payer MEDICARE, OTHER | END 2023-03-19 22:55 | disposition home or self-care (01) | LOC: WOUND 04:55 | DX: E11.621 Type 2 diabetes mellitus with foot ulcer (principal); L97.522 Non-pressure chronic ulcer of other part of left foot with fat layer exposed; E11.69 Type 2 diabetes mellitus with other specified complication; E11.51 Type 2 diabetes mellitus with diabetic peripheral angiopathy without gangrene | CPT/HCPCS: G0463 ==

== ENCOUNTER 2023-03-23 08:36 | Day surgery (SDC) | payer MEDICARE, OTHER ==
[2023-03-23 08:46] VITALS: BP 127/79
== END 2023-03-23 10:57 | disposition home or self-care (01) ==
LOC: ATC 08:36
DX: C83.33 Diffuse large B-cell lymphoma, intra-abdominal lymph nodes (principal); M17.12 Unilateral primary osteoarthritis, left knee; G47.33 Obstructive sleep apnea (adult) (pediatric); I25.10 Atherosclerotic heart disease of native coronary artery without angina pectoris; E11.40 Type 2 diabetes mellitus with diabetic neuropathy, unspecified; I10 Essential (primary) hypertension; K21.9 Gastro-esophageal reflux disease without esophagitis; F33.1 Major depressive disorder, recurrent, moderate; Z79.84 Long term (current) use of oral hypoglycemic drugs; Z88.5 Allergy status to narcotic agent; Z85.47 Personal history of malignant neoplasm of testis
CPT/HCPCS: 96523; J1642

== ENCOUNTER 2023-05-04 07:46 | Day surgery (SDC) | payer MEDICARE, OTHER ==
[2023-05-04 09:33] VITALS: BP 113/68
[2023-05-04 10:05] LABS: BASOPHILS ABSOLUTE AUTO 0.03 K/mm3 (0.00-0.23); BASOPHILS ABSOLUTE AUTO 0.04 K/mm3 (0.00-0.23); BASOPHILS PERCENT AUTO 0 % (0-2); BASOPHILS PERCENT AUTO 1 % (0-2); EOSINOPHILS ABSOLUTE AUTO 0.11 K/mm3 (0.00-0.68); EOSINOPHILS ABSOLUTE AUTO 0.12 K/mm3 (0.00-0.68); EOSINOPHILS PERCENT AUTO 2 % (0-6); Hematocrit 45.8 % (37.0-53.0); Hematocrit 46.8 % (37.0-53.0); Hemoglobin 15.1 g/dL (13.5-17.5); Hemoglobin 15.2 g/dL (13.5-17.5); IMMATURE GRAN ABSOLUTE AUTO 0.05 K/mm3 (0.00-0.10); IMMATURE GRAN PERCENT AUTO 1 % (0-1); LYMPHOCYTES ABSOLUTE AUTO 1.56 K/mm3 (0.84-5.20); LYMPHOCYTES ABSOLUTE AUTO 1.64 K/mm3 (0.84-5.20); LYMPHOCYTES PERCENT AUTO 22 % (21-46); MONOCYTES ABSOLUTE AUTO 0.54 K/mm3 (0.16-1.47); MONOCYTES ABSOLUTE AUTO 0.55 K/mm3 (0.16-1.47); MONOCYTES PERCENT AUTO 7 % (4-13); MONOCYTES PERCENT AUTO 8 % (4-13); Mean Corpuscular HGB 31.5 pg (26.0-34.0); Mean Corpuscular HGB 31.7 pg (26.0-34.0); Mean Corpuscular HGB Conc 32.5 g/dL (31.5-36.5); Mean Corpuscular Volume 96 fL (80-100); Mean Corpuscular Volume 97 fL (80-100); Mean Platelet Volume 9.6 fL (9.1-12.4); Mean Platelet Volume 9.7 fL (9.1-12.4); NEUTROPHILS ABSOLUTE AUTO 4.85 K/mm3 (1.96-9.15); NEUTROPHILS ABSOLUTE AUTO 4.97 K/mm3 (1.96-9.15); NEUTROPHILS PERCENT AUTO 68 % (41-73); Platelet Count 242 K/mm3 (150-400); Platelet Count 243 K/mm3 (150-400); RDW Coefficient Variation 15.2 % (11.7-14.2); RDW Coefficient Variation 15.3 % (11.7-14.2); RDW Standard Deviation 53.1 fL (35.1-46.3); RDW Standard Deviation 53.8 fL (35.1-46.3); Red Blood Cell Count 4.76 M/mm3 (4.30-5.90); Red Blood Cell Count 4.83 M/mm3 (4.30-5.90); White Blood Cell Count 7.17 K/mm3 (4.00-11.30); White Blood Cell Count 7.34 K/mm3 (4.00-11.30)
[2023-05-04 10:27] LABS: Albumin, Blood 3.5 g/dL (3.4-5.0); Albumin/Globulin Ratio 0.9 (0.8-1.8); Bilirubin, Total 0.6 mg/dL (0.1-1.0); Bun/Creatinine Ratio 22.6 (12.0-20.0); Calcium, Blood 9.1 mg/dL (8.5-10.1); Creatinine, Blood 0.8 mg/dL (0.60-1.20); Globulin, Blood 3.8 g/dL (2.2-4.0); Potassium, Blood 4.1 mmol/L (3.5-5.5); Total Protein, Blood 7.3 g/dL (6.4-8.2)
[2023-05-04 10:29] LABS: Alanine Aminotransfer (ALT/SGP 85 U/L (12-78); Albumin, Blood 3.4 g/dL (3.4-5.0); Albumin/Globulin Ratio 0.9 (0.8-1.8); Alk Phos 425 U/L (50-136); Anion Gap 3 mmol/L (6-16); Aspartate Aminotrans (AST/SGOT 48 U/L (12-37); Bilirubin, Total 0.6 mg/dL (0.1-1.0); Blood Urea Nitrogen 18 mg/dL (8-24); Bun/Creatinine Ratio 21.8 (12.0-20.0); CHOL/HDL RATIO 1.7; CO2, Blood 30 mmol/L (21-32); Calcium, Blood 9.1 mg/dL (8.5-10.1); Chloride, Blood 106 mmol/L (98-108); Cholesterol 134 mg/dL (50-200); Creatinine, Blood 0.83 mg/dL (0.60-1.20); Globulin, Blood 3.9 g/dL (2.2-4.0); Glomerular Filtration Rate 92 (60-); Glucose, Blood 147 mg/dL (70-99); HDL Cholesterol 80 mg/dL (>39); LDL/HDL RATIO 0.4; Lactate Dehydrogenase (Ld),Bld 272 U/L (100-240); Low Density Lipoprotein Chol 31 mg/dL (0-110); Potassium, Blood 4.1 mmol/L (3.5-5.5); Sodium, Blood 139 mmol/L (136-145); Total Protein, Blood 7.3 g/dL (6.4-8.2); Triglycerides 113 mg/dL (30-160); Very Low Density Lipoprot Chol 22 mg/dL (6-32)
== END 2023-05-04 09:46 | disposition home or self-care (01) ==
LOC: ATC 07:46
PROVIDERS: Family Medicine
DX: C83.33 Diffuse large B-cell lymphoma, intra-abdominal lymph nodes (principal); I10 Essential (primary) hypertension; I25.10 Atherosclerotic heart disease of native coronary artery without angina pectoris; E11.40 Type 2 diabetes mellitus with diabetic neuropathy, unspecified; G47.33 Obstructive sleep apnea (adult) (pediatric); K21.9 Gastro-esophageal reflux disease without esophagitis; J43.9 Emphysema, unspecified; Z79.84 Long term (current) use of oral hypoglycemic drugs; Z79.899 Other long term (current) drug therapy
CPT/HCPCS: 36591; 80053; 80061; 80197; 83036; 83615; 85025; J1642

== ENCOUNTER 2023-07-09 04:21 | Day surgery (SDC) | payer MEDICARE, OTHER ==
[2023-07-09 11:45] VITALS: BP 148/93
[2023-07-09 12:12] LABS: BASOPHILS ABSOLUTE AUTO 0.05 K/mm3 (0.00-0.23); BASOPHILS PERCENT AUTO 1 % (0-2); EOSINOPHILS ABSOLUTE AUTO 0.08 K/mm3 (0.00-0.68); EOSINOPHILS PERCENT AUTO 1 % (0-6); Hematocrit 48.5 % (37.0-53.0); Hemoglobin 15.7 g/dL (13.5-17.5); IMMATURE GRAN ABSOLUTE AUTO 0.04 K/mm3 (0.00-0.10); IMMATURE GRAN PERCENT AUTO 1 % (0-1); LYMPHOCYTES ABSOLUTE AUTO 1.19 K/mm3 (0.84-5.20); LYMPHOCYTES PERCENT AUTO 15 % (21-46); MONOCYTES ABSOLUTE AUTO 0.49 K/mm3 (0.16-1.47); MONOCYTES PERCENT AUTO 6 % (4-13); Mean Corpuscular HGB Conc 32.4 g/dL (31.5-36.5); Mean Corpuscular Volume 96 fL (80-100); Mean Platelet Volume 9.7 fL (9.1-12.4); NEUTROPHILS ABSOLUTE AUTO 6.29 K/mm3 (1.96-9.15); NEUTROPHILS PERCENT AUTO 77 % (41-73); Platelet Count 218 K/mm3 (150-400); RDW Coefficient Variation 14.6 % (11.7-14.2); RDW Standard Deviation 50.7 fL (35.1-46.3); Red Blood Cell Count 5.06 M/mm3 (4.30-5.90); White Blood Cell Count 8.14 K/mm3 (4.00-11.30)
[2023-07-09 12:40] LABS: International Normalized Ratio 0.96; Prothrombin Time Results 10.3 Sec (9.7-11.5)
[2023-07-09 12:42] LABS: Albumin, Blood 3.3 g/dL (3.4-5.0); Albumin/Globulin Ratio 0.8 (0.8-1.8); Bilirubin, Total 0.5 mg/dL (0.1-1.0); Bun/Creatinine Ratio 17.7 (12.0-20.0); Calcium, Blood 9.3 mg/dL (8.5-10.1); Creatinine, Blood 0.74 mg/dL (0.60-1.20); Globulin, Blood 4.2 g/dL (2.2-4.0); Potassium, Blood 4.3 mmol/L (3.5-5.5); Total Protein, Blood 7.5 g/dL (6.4-8.2)
== END 2023-07-09 11:45 | disposition home or self-care (01) ==
LOC: ATC 04:21
PROVIDERS: Surgery
DX: R59.0 Localized enlarged lymph nodes (principal); Z79.01 Long term (current) use of anticoagulants
CPT/HCPCS: 36591; 80053; 85025; 85610; 85730; J1642

== ENCOUNTER 2023-09-16 09:06 | Emergency (ER) | payer MEDICARE, OTHER ==
[~2023-09-16] VITALS: Ht 182.9 cm; Wt 99.8 kg
[2023-09-16 09:16] VITALS: BP 138/76
[2023-09-16] MEDS ORDERED: OMEP20ER (09:24)
[2023-09-16 10:29] LABS: BASOPHILS ABSOLUTE AUTO 0.03 K/mm3 (0.00-0.23); BASOPHILS PERCENT AUTO 0 % (0-2); EOSINOPHILS ABSOLUTE AUTO 0.08 K/mm3 (0.00-0.68); EOSINOPHILS PERCENT AUTO 1 % (0-6); Hematocrit 44.7 % (37.0-53.0); Hemoglobin 14.5 g/dL (13.5-17.5); IMMATURE GRAN ABSOLUTE AUTO 0.04 K/mm3 (0.00-0.10); IMMATURE GRAN PERCENT AUTO 1 % (0-1); LYMPHOCYTES ABSOLUTE AUTO 1.35 K/mm3 (0.84-5.20); LYMPHOCYTES PERCENT AUTO 17 % (21-46); MONOCYTES ABSOLUTE AUTO 0.46 K/mm3 (0.16-1.47); MONOCYTES PERCENT AUTO 6 % (4-13); Mean Corpuscular HGB 30.2 pg (26.0-34.0); Mean Corpuscular HGB Conc 32.4 g/dL (31.5-36.5); Mean Corpuscular Volume 93 fL (80-100); NEUTROPHILS ABSOLUTE AUTO 5.96 K/mm3 (1.96-9.15); NEUTROPHILS PERCENT AUTO 75 % (41-73); Platelet Count 216 K/mm3 (150-400); RDW Coefficient Variation 13.5 % (11.7-14.2); RDW Standard Deviation 46.5 fL (35.1-46.3); White Blood Cell Count 7.92 K/mm3 (4.00-11.30)
[2023-09-16 10:52] LABS: Albumin, Blood 3.1 g/dL (3.4-5.0); Albumin/Globulin Ratio 0.8 (0.8-1.8); Bilirubin, Total 0.6 mg/dL (0.1-1.0); Bun/Creatinine Ratio 25.5 (12.0-20.0); Calcium, Blood 8.9 mg/dL (8.5-10.1); Creatinine, Blood 0.75 mg/dL (0.60-1.20); Potassium, Blood 4.1 mmol/L (3.5-5.5); Total Protein, Blood 7.1 g/dL (6.4-8.2)
[2023-09-16] MEDS ORDERED: CEPH500 PO (11:15)
== END 2023-09-16 12:30 | disposition home or self-care (01) ==
LOC: ER 09:06
PROVIDERS: Physician Assistant
DX: E11.621 Type 2 diabetes mellitus with foot ulcer (principal); L97.429 Non-pressure chronic ulcer of left heel and midfoot with unspecified severity; Z79.899 Other long term (current) drug therapy; Z79.51 Long term (current) use of inhaled steroids; Z79.84 Long term (current) use of oral hypoglycemic drugs; Z79.02 Long term (current) use of antithrombotics/antiplatelets; Z79.4 Long term (current) use of insulin; Z88.5 Allergy status to narcotic agent; Z88.1 Allergy status to other antibiotic agents; Z88.8 Allergy status to other drugs, medicaments and biological substances
CPT/HCPCS: 73620; 80053; 85025

== ENCOUNTER 2023-09-16 12:36 | Day surgery (SDC) | payer MEDICARE, OTHER ==
[~2023-09-16 12:36] MED LIST changes: +CEPH500 PO; +OMEP20ER
== END 2023-09-16 23:12 | disposition home or self-care (01) ==
LOC: WOUND 12:36
DX: E11.621 Type 2 diabetes mellitus with foot ulcer (principal); L97.422 Non-pressure chronic ulcer of left heel and midfoot with fat layer exposed; S91.302A Unspecified open wound, left foot, initial encounter; X58.XXXA Exposure to other specified factors, initial encounter; I87.2 Venous insufficiency (chronic) (peripheral); E11.40 Type 2 diabetes mellitus with diabetic neuropathy, unspecified; Z88.8 Allergy status to other drugs, medicaments and biological substances; I50.9 Heart failure, unspecified; Z79.899 Other long term (current) drug therapy; L97.429 Non-pressure chronic ulcer of left heel and midfoot with unspecified severity; Z79.51 Long term (current) use of inhaled steroids; Z79.84 Long term (current) use of oral hypoglycemic drugs; Z79.02 Long term (current) use of antithrombotics/antiplatelets; Z79.4 Long term (current) use of insulin; Z88.5 Allergy status to narcotic agent; Z88.1 Allergy status to other antibiotic agents
CPT/HCPCS: 73620; 80053; 85025; 99283-25; A6214; G0463

== ENCOUNTER 2023-09-23 02:16 | Day surgery (SDC) | payer MEDICARE, OTHER | END 2023-09-23 23:01 | disposition home or self-care (01) | LOC: WOUND 02:16 | DX: S91.302D Unspecified open wound, left foot, subsequent encounter (principal); E11.40 Type 2 diabetes mellitus with diabetic neuropathy, unspecified | CPT/HCPCS: A6214; G0463 ==

== ENCOUNTER 2023-09-30 03:15 | Day surgery (SDC) | payer MEDICARE, OTHER ==
[2023-09-30] MEDS ORDERED: Lidocaine HCl 4% Cream 5 GM ONE (09:39)
== END 2023-10-01 22:47 | disposition home or self-care (01) ==
LOC: WOUND 03:15
DX: S91.302D Unspecified open wound, left foot, subsequent encounter (principal); E11.40 Type 2 diabetes mellitus with diabetic neuropathy, unspecified; E11.51 Type 2 diabetes mellitus with diabetic peripheral angiopathy without gangrene; I87.2 Venous insufficiency (chronic) (peripheral); X58.XXXD Exposure to other specified factors, subsequent encounter
CPT/HCPCS: A6214; A9270; G0463

== ENCOUNTER 2023-10-07 01:20 | Day surgery (SDC) | payer MEDICARE, OTHER | END 2023-10-08 05:24 | disposition home or self-care (01) | LOC: WOUND 01:20 | DX: E11.621 Type 2 diabetes mellitus with foot ulcer (principal); L97.422 Non-pressure chronic ulcer of left heel and midfoot with fat layer exposed; S91.302A Unspecified open wound, left foot, initial encounter; X58.XXXA Exposure to other specified factors, initial encounter; E11.51 Type 2 diabetes mellitus with diabetic peripheral angiopathy without gangrene; I87.2 Venous insufficiency (chronic) (peripheral); E11.40 Type 2 diabetes mellitus with diabetic neuropathy, unspecified | CPT/HCPCS: A6214; G0463 ==

== ENCOUNTER 2023-10-14 02:37 | Day surgery (SDC) | payer MEDICARE, OTHER | END 2023-10-14 23:02 | disposition home or self-care (01) | LOC: WOUND 02:37 | DX: S91.302D Unspecified open wound, left foot, subsequent encounter (principal); I73.9 Peripheral vascular disease, unspecified; I87.2 Venous insufficiency (chronic) (peripheral); X58.XXXD Exposure to other specified factors, subsequent encounter | CPT/HCPCS: A6214; G0463 ==

== ENCOUNTER 2023-11-04 05:32 | Day surgery (SDC) | payer MEDICARE, OTHER | END 2023-11-04 23:14 | disposition home or self-care (01) | LOC: WOUND 05:32 | DX: E11.621 Type 2 diabetes mellitus with foot ulcer (principal); L97.422 Non-pressure chronic ulcer of left heel and midfoot with fat layer exposed; S91.302A Unspecified open wound, left foot, initial encounter; X58.XXXA Exposure to other specified factors, initial encounter; E11.51 Type 2 diabetes mellitus with diabetic peripheral angiopathy without gangrene; I87.2 Venous insufficiency (chronic) (peripheral); E11.40 Type 2 diabetes mellitus with diabetic neuropathy, unspecified | CPT/HCPCS: A6214; G0463 ==

== ENCOUNTER 2023-11-11 00:53 | Day surgery (SDC) | payer MEDICARE, OTHER | END 2023-11-11 23:18 | disposition home or self-care (01) | LOC: WOUND 00:53 | DX: S91.302D Unspecified open wound, left foot, subsequent encounter (principal); I73.9 Peripheral vascular disease, unspecified; I87.2 Venous insufficiency (chronic) (peripheral); K59.00 Constipation, unspecified; R10.84 Generalized abdominal pain; X58.XXXD Exposure to other specified factors, subsequent encounter | CPT/HCPCS: 74022; A6214; G0463 ==

== ENCOUNTER 2023-11-13 01:06 | Day surgery (SDC) | payer MEDICARE, OTHER ==
[2023-11-13 08:26] VITALS: BP 124/70
== END 2023-11-13 08:30 | disposition home or self-care (01) ==
LOC: ATC 01:06
DX: E11.9 Type 2 diabetes mellitus without complications (principal); C83.33 Diffuse large B-cell lymphoma, intra-abdominal lymph nodes
CPT/HCPCS: 36591; 83036; J1642

== ENCOUNTER 2023-11-23 08:49 | Day surgery (SDC) | payer MEDICARE, OTHER ==
[2023-11-23 08:55] VITALS: BP 111/58
[2023-11-23 09:34] LABS: BASOPHILS ABSOLUTE AUTO 0.04 K/mm3 (0.00-0.23); BASOPHILS PERCENT AUTO 1 % (0-2); EOSINOPHILS ABSOLUTE AUTO 0.09 K/mm3 (0.00-0.68); EOSINOPHILS PERCENT AUTO 1 % (0-6); Hematocrit 44.2 % (37.0-53.0); Hemoglobin 14.6 g/dL (13.5-17.5); IMMATURE GRAN ABSOLUTE AUTO 0.03 K/mm3 (0.00-0.10); IMMATURE GRAN PERCENT AUTO 0 % (0-1); LYMPHOCYTES ABSOLUTE AUTO 1.28 K/mm3 (0.84-5.20); LYMPHOCYTES PERCENT AUTO 18 % (21-46); MONOCYTES ABSOLUTE AUTO 0.44 K/mm3 (0.16-1.47); MONOCYTES PERCENT AUTO 6 % (4-13); Mean Corpuscular HGB 29.7 pg (26.0-34.0); Mean Corpuscular Volume 90 fL (80-100); Mean Platelet Volume 11.3 fL (9.1-12.4); NEUTROPHILS ABSOLUTE AUTO 5.11 K/mm3 (1.96-9.15); NEUTROPHILS PERCENT AUTO 73 % (41-73); Platelet Count 112 K/mm3 (150-400); RDW Coefficient Variation 14.3 % (11.7-14.2); RDW Standard Deviation 46.7 fL (35.1-46.3); Red Blood Cell Count 4.91 M/mm3 (4.30-5.90); White Blood Cell Count 6.99 K/mm3 (4.00-11.30)
[2023-11-23 10:27] LABS: Alanine Aminotransfer (ALT/SGP 51 U/L (12-78); Albumin, Blood 3.1 g/dL (3.4-5.0); Albumin/Globulin Ratio 0.8 (0.8-1.8); Alk Phos 396 U/L (50-136); Anion Gap 12 mmol/L (3-11); Aspartate Aminotrans (AST/SGOT 38 U/L (12-37); Bilirubin, Total 0.5 mg/dL (0.1-1.0); Blood Urea Nitrogen 15 mg/dL (8-24); Bun/Creatinine Ratio 21.4 (12.0-20.0); CHOL/HDL RATIO 1.7; CO2, Blood 25 mmol/L (21-32); Calcium, Blood 9.1 mg/dL (8.5-10.1); Chloride, Blood 109 mmol/L (98-108); Cholesterol 113 mg/dL (50-200); Free Thyroxine 1.15 ng/dL (0.70-1.60); Glomerular Filtration Rate 96 (60-); Glucose, Blood 134 mg/dL (70-99); HDL Cholesterol 66 mg/dL (>39); LDL/HDL RATIO 0.4; Lactate Dehydrogenase (Ld),Bld 183 U/L (100-240); Low Density Lipoprotein Chol 27 mg/dL (0-110); Potassium, Blood 4.1 mmol/L (3.5-5.5); Sodium, Blood 142 mmol/L (136-145); Total Protein, Blood 7.1 g/dL (6.4-8.2); Triglycerides 100 mg/dL (30-160); Very Low Density Lipoprot Chol 20 mg/dL (6-32)
--- NOTE | 2023-11-23 10:36 | NUR ---
PT TO HAVE PET SCAN TODAY. PT TO RETURN AFTER PET SCAN FOR DEACCESS OF PORT.
--- NOTE | 2023-11-23 11:06 | NUR ---
Lab results from today faxed to Dr. Zapien at [facility].
[2023-11-25 08:11] LABS: TACROLIMUS BY HPLC-MS/MS 2.5 ng/mL
== END 2023-11-23 12:10 | disposition home or self-care (01) ==
LOC: ATC 08:49
PROVIDERS: Family Medicine
DX: C83.33 Diffuse large B-cell lymphoma, intra-abdominal lymph nodes (principal); I10 Essential (primary) hypertension; N42.9 Disorder of prostate, unspecified; R53.83 Other fatigue
CPT/HCPCS: 36591; 78815; 80053; 80061; 80197; 82607; 83615; 84153; 84439; 84443; 85025; 96523; A9552; J1642

== ENCOUNTER 2023-12-02 01:36 | Day surgery (SDC) | payer MEDICARE, OTHER | END 2023-12-02 22:54 | disposition home or self-care (01) | LOC: WOUND 01:36 | DX: E11.621 Type 2 diabetes mellitus with foot ulcer (principal); L97.422 Non-pressure chronic ulcer of left heel and midfoot with fat layer exposed; S91.302A Unspecified open wound, left foot, initial encounter; X58.XXXA Exposure to other specified factors, initial encounter; I73.9 Peripheral vascular disease, unspecified; I87.2 Venous insufficiency (chronic) (peripheral) | CPT/HCPCS: A6214; G0463 ==

== ENCOUNTER 2023-12-23 04:45 | Day surgery (SDC) | payer MEDICARE, OTHER | END 2023-12-23 23:00 | disposition home or self-care (01) | LOC: WOUND 04:45 | DX: S91.302D Unspecified open wound, left foot, subsequent encounter (principal); E11.40 Type 2 diabetes mellitus with diabetic neuropathy, unspecified; E11.51 Type 2 diabetes mellitus with diabetic peripheral angiopathy without gangrene | CPT/HCPCS: G0463 ==

== ENCOUNTER 2024-01-13 03:05 | Day surgery (SDC) | payer MEDICARE, OTHER | END 2024-01-13 23:56 | disposition home or self-care (01) | LOC: WOUND 03:05 | DX: L89.623 Pressure ulcer of left heel, stage 3 (principal); E11.51 Type 2 diabetes mellitus with diabetic peripheral angiopathy without gangrene; I87.2 Venous insufficiency (chronic) (peripheral); E11.40 Type 2 diabetes mellitus with diabetic neuropathy, unspecified | CPT/HCPCS: G0463 ==

== ENCOUNTER 2024-01-20 03:16 | Day surgery (SDC) | payer MEDICARE, OTHER | END 2024-01-20 23:00 | disposition home or self-care (01) | LOC: WOUND 03:16 | DX: L89.893 Pressure ulcer of other site, stage 3 (principal); I87.2 Venous insufficiency (chronic) (peripheral); E11.40 Type 2 diabetes mellitus with diabetic neuropathy, unspecified; E11.51 Type 2 diabetes mellitus with diabetic peripheral angiopathy without gangrene; Z94.4 Liver transplant status | CPT/HCPCS: G0463 ==

== ENCOUNTER 2024-01-27 04:38 | Day surgery (SDC) | payer MEDICARE, OTHER | END 2024-01-27 23:00 | disposition home or self-care (01) | LOC: WOUND 04:38 | DX: L89.893 Pressure ulcer of other site, stage 3 (principal); I73.9 Peripheral vascular disease, unspecified; I87.2 Venous insufficiency (chronic) (peripheral); Z85.05 Personal history of malignant neoplasm of liver; Z94.4 Liver transplant status | CPT/HCPCS: G0463 ==

== ENCOUNTER 2024-02-24 03:21 | Day surgery (SDC) | payer MEDICARE, OTHER ==
[2024-02-24 10:31] VITALS: BP 131/78
== END 2024-02-24 10:37 | disposition home or self-care (01) ==
LOC: ATC 03:21
DX: C83.33 Diffuse large B-cell lymphoma, intra-abdominal lymph nodes (principal); E11.40 Type 2 diabetes mellitus with diabetic neuropathy, unspecified; I25.10 Atherosclerotic heart disease of native coronary artery without angina pectoris; I10 Essential (primary) hypertension; K21.9 Gastro-esophageal reflux disease without esophagitis; G47.33 Obstructive sleep apnea (adult) (pediatric); Z85.47 Personal history of malignant neoplasm of testis; F33.1 Major depressive disorder, recurrent, moderate; K52.831 Collagenous colitis; J32.8 Other chronic sinusitis; J43.2 Centrilobular emphysema; I77.1 Stricture of artery; Z87.891 Personal history of nicotine dependence; Z88.5 Allergy status to narcotic agent; Z88.8 Allergy status to other drugs, medicaments and biological substances; Z79.4 Long term (current) use of insulin; Z79.899 Other long term (current) drug therapy
CPT/HCPCS: 96523; J1642

== ENCOUNTER 2024-03-23 01:31 | Day surgery (SDC) | payer MEDICARE, OTHER ==
[2024-03-23] MEDS ORDERED: Lidocaine HCl 4% Cream 5 GM ONE (13:06)
== END 2024-03-23 23:00 | disposition home or self-care (01) ==
LOC: WOUND 01:31
DX: E11.621 Type 2 diabetes mellitus with foot ulcer (principal); L97.422 Non-pressure chronic ulcer of left heel and midfoot with fat layer exposed; L97.522 Non-pressure chronic ulcer of other part of left foot with fat layer exposed; E11.51 Type 2 diabetes mellitus with diabetic peripheral angiopathy without gangrene; I87.2 Venous insufficiency (chronic) (peripheral); I50.9 Heart failure, unspecified; Z87.891 Personal history of nicotine dependence; Z94.4 Liver transplant status; Z79.4 Long term (current) use of insulin; Z79.84 Long term (current) use of oral hypoglycemic drugs; Z88.8 Allergy status to other drugs, medicaments and biological substances; Z85.05 Personal history of malignant neoplasm of liver
CPT/HCPCS: A6214; A9270; G0463

== ENCOUNTER 2024-03-30 04:29 | Day surgery (SDC) | payer MEDICARE ==
[2024-03-30] MEDS ORDERED: Lidocaine HCl 4% Cream 5 GM ONE (09:44)
== END 2024-03-30 23:02 | disposition home or self-care (01) ==
LOC: WOUND 04:29
DX: E11.621 Type 2 diabetes mellitus with foot ulcer (principal); L97.422 Non-pressure chronic ulcer of left heel and midfoot with fat layer exposed; L97.522 Non-pressure chronic ulcer of other part of left foot with fat layer exposed; E11.40 Type 2 diabetes mellitus with diabetic neuropathy, unspecified; L89.623 Pressure ulcer of left heel, stage 3; E11.51 Type 2 diabetes mellitus with diabetic peripheral angiopathy without gangrene; I87.2 Venous insufficiency (chronic) (peripheral)
CPT/HCPCS: A6214; A9270

== ENCOUNTER 2024-04-06 05:12 | Day surgery (SDC) | payer MEDICARE | END 2024-04-10 23:00 | disposition home or self-care (01) | LOC: WOUND 05:12 | DX: E11.621 Type 2 diabetes mellitus with foot ulcer (principal); L97.422 Non-pressure chronic ulcer of left heel and midfoot with fat layer exposed; L97.522 Non-pressure chronic ulcer of other part of left foot with fat layer exposed; I87.2 Venous insufficiency (chronic) (peripheral); E11.51 Type 2 diabetes mellitus with diabetic peripheral angiopathy without gangrene | CPT/HCPCS: A6213; G0463 ==

== ENCOUNTER 2024-04-13 03:07 | Day surgery (SDC) | payer MEDICARE | END 2024-04-13 23:00 | disposition home or self-care (01) | LOC: WOUND 03:07 | DX: E11.621 Type 2 diabetes mellitus with foot ulcer (principal); L97.422 Non-pressure chronic ulcer of left heel and midfoot with fat layer exposed; L89.623 Pressure ulcer of left heel, stage 3; E11.40 Type 2 diabetes mellitus with diabetic neuropathy, unspecified; E11.51 Type 2 diabetes mellitus with diabetic peripheral angiopathy without gangrene; I87.2 Venous insufficiency (chronic) (peripheral) | CPT/HCPCS: A6213; G0463 ==

== ENCOUNTER 2024-04-18 06:57 | Day surgery (SDC) | payer OTHER, MEDICARE | END 2024-04-18 23:00 | disposition home or self-care (01) | LOC: HBO 06:57 | DX: L89.623 Pressure ulcer of left heel, stage 3 (principal); I87.2 Venous insufficiency (chronic) (peripheral); E11.621 Type 2 diabetes mellitus with foot ulcer; E11.51 Type 2 diabetes mellitus with diabetic peripheral angiopathy without gangrene | CPT/HCPCS: 82947; G0277 ==

== ENCOUNTER 2024-04-19 01:34 | Day surgery (SDC) | payer OTHER, MEDICARE | END 2024-04-19 23:00 | disposition home or self-care (01) | LOC: HBO 01:34 | DX: E11.621 Type 2 diabetes mellitus with foot ulcer (principal); L97.429 Non-pressure chronic ulcer of left heel and midfoot with unspecified severity; L59.8 Other specified disorders of the skin and subcutaneous tissue related to radiation; I87.2 Venous insufficiency (chronic) (peripheral); E11.51 Type 2 diabetes mellitus with diabetic peripheral angiopathy without gangrene | CPT/HCPCS: 82947; G0277 ==

== ENCOUNTER 2024-04-20 05:58 | Day surgery (SDC) | payer OTHER, MEDICARE | END 2024-04-20 23:00 | disposition home or self-care (01) | LOC: HBO 05:58 | DX: E11.621 Type 2 diabetes mellitus with foot ulcer (principal); L97.429 Non-pressure chronic ulcer of left heel and midfoot with unspecified severity; L59.8 Other specified disorders of the skin and subcutaneous tissue related to radiation; E11.51 Type 2 diabetes mellitus with diabetic peripheral angiopathy without gangrene; I87.2 Venous insufficiency (chronic) (peripheral) | CPT/HCPCS: 82947; G0277 ==

== ENCOUNTER 2024-04-20 06:03 | Day surgery (SDC) | payer OTHER, MEDICARE ==
[2024-04-20] MEDS ORDERED: Lidocaine HCl 4% Cream 5 GM ONE (09:14)
== END 2024-04-20 23:00 | disposition home or self-care (01) ==
LOC: WOUND 06:03
DX: E11.621 Type 2 diabetes mellitus with foot ulcer (principal); L97.422 Non-pressure chronic ulcer of left heel and midfoot with fat layer exposed; L97.522 Non-pressure chronic ulcer of other part of left foot with fat layer exposed; L89.623 Pressure ulcer of left heel, stage 3; E11.51 Type 2 diabetes mellitus with diabetic peripheral angiopathy without gangrene; I87.2 Venous insufficiency (chronic) (peripheral)
CPT/HCPCS: A6213; A9270

== ENCOUNTER 2024-04-21 02:09 | Day surgery (SDC) | payer OTHER, MEDICARE | END 2024-04-21 23:00 | disposition home or self-care (01) | LOC: HBO 02:09 | DX: L89.623 Pressure ulcer of left heel, stage 3 (principal); I73.9 Peripheral vascular disease, unspecified; I87.2 Venous insufficiency (chronic) (peripheral); E11.51 Type 2 diabetes mellitus with diabetic peripheral angiopathy without gangrene; E11.621 Type 2 diabetes mellitus with foot ulcer | CPT/HCPCS: 82947; G0277 ==

== ENCOUNTER 2024-04-22 03:43 | Day surgery (SDC) | payer OTHER, MEDICARE | END 2024-04-22 23:00 | disposition home or self-care (01) | LOC: HBO 03:43 | DX: L89.623 Pressure ulcer of left heel, stage 3 (principal); E11.621 Type 2 diabetes mellitus with foot ulcer; E11.51 Type 2 diabetes mellitus with diabetic peripheral angiopathy without gangrene; I87.2 Venous insufficiency (chronic) (peripheral) | CPT/HCPCS: 82947; G0277 ==

== ENCOUNTER 2024-04-25 00:53 | Day surgery (SDC) | payer OTHER, MEDICARE | END 2024-04-25 23:00 | disposition home or self-care (01) | LOC: HBO 00:53 | DX: L89.623 Pressure ulcer of left heel, stage 3 (principal); E11.51 Type 2 diabetes mellitus with diabetic peripheral angiopathy without gangrene; I87.2 Venous insufficiency (chronic) (peripheral); E11.621 Type 2 diabetes mellitus with foot ulcer | CPT/HCPCS: 82947; G0277 ==

== ENCOUNTER 2024-04-26 11:26 | Day surgery (SDC) | payer OTHER, MEDICARE | END 2024-04-26 23:00 | disposition home or self-care (01) | LOC: HBO 11:26 | DX: E11.621 Type 2 diabetes mellitus with foot ulcer (principal); L97.422 Non-pressure chronic ulcer of left heel and midfoot with fat layer exposed; L59.8 Other specified disorders of the skin and subcutaneous tissue related to radiation; E11.51 Type 2 diabetes mellitus with diabetic peripheral angiopathy without gangrene; I87.2 Venous insufficiency (chronic) (peripheral) | CPT/HCPCS: 82947; G0277 ==

== ENCOUNTER 2024-04-27 09:51 | Day surgery (SDC) | payer OTHER, MEDICARE | END 2024-04-27 23:00 | disposition home or self-care (01) | LOC: HBO 09:51 | DX: E11.621 Type 2 diabetes mellitus with foot ulcer (principal); L97.429 Non-pressure chronic ulcer of left heel and midfoot with unspecified severity; L59.8 Other specified disorders of the skin and subcutaneous tissue related to radiation; E11.51 Type 2 diabetes mellitus with diabetic peripheral angiopathy without gangrene; I87.2 Venous insufficiency (chronic) (peripheral) | CPT/HCPCS: 82947; G0277 ==

== ENCOUNTER 2024-04-28 00:09 | Day surgery (SDC) | payer OTHER, MEDICARE | END 2024-04-28 23:00 | disposition home or self-care (01) | LOC: HBO 00:09 | DX: L89.623 Pressure ulcer of left heel, stage 3 (principal); E11.51 Type 2 diabetes mellitus with diabetic peripheral angiopathy without gangrene; I87.2 Venous insufficiency (chronic) (peripheral); E11.621 Type 2 diabetes mellitus with foot ulcer | CPT/HCPCS: 82947; G0277 ==

== ENCOUNTER 2024-05-04 00:11 | Day surgery (SDC) | payer OTHER, MEDICARE | END 2024-05-04 23:00 | disposition home or self-care (01) | LOC: HBO 00:11 | DX: L89.623 Pressure ulcer of left heel, stage 3 (principal); I73.9 Peripheral vascular disease, unspecified; I87.2 Venous insufficiency (chronic) (peripheral); E11.621 Type 2 diabetes mellitus with foot ulcer; C83.33 Diffuse large B-cell lymphoma, intra-abdominal lymph nodes; J43.2 Centrilobular emphysema; F33.1 Major depressive disorder, recurrent, moderate; E11.40 Type 2 diabetes mellitus with diabetic neuropathy, unspecified; I25.10 Atherosclerotic heart disease of native coronary artery without angina pectoris; I10 Essential (primary) hypertension; K21.9 Gastro-esophageal reflux disease without esophagitis; E11.51 Type 2 diabetes mellitus with diabetic peripheral angiopathy without gangrene; L97.422 Non-pressure chronic ulcer of left heel and midfoot with fat layer exposed; L97.522 Non-pressure chronic ulcer of other part of left foot with fat layer exposed; Z79.02 Long term (current) use of antithrombotics/antiplatelets; Z87.891 Personal history of nicotine dependence; Z79.4 Long term (current) use of insulin; Z79.84 Long term (current) use of oral hypoglycemic drugs; Z79.899 Other long term (current) drug therapy; Z88.5 Allergy status to narcotic agent; Z88.8 Allergy status to other drugs, medicaments and biological substances; Z90.49 Acquired absence of other specified parts of digestive tract; Z94.4 Liver transplant status | CPT/HCPCS: 36591; 80053; 80061; 80197; 82607; 82947; 83036; 83615; 84436; 84443; 85025; A6213; A9270; G0277; J1642 ==

== ENCOUNTER 2024-05-05 02:23 | Day surgery (SDC) | payer OTHER, MEDICARE | END 2024-05-05 23:00 | disposition home or self-care (01) | LOC: HBO 02:23 | DX: L89.623 Pressure ulcer of left heel, stage 3 (principal); E11.621 Type 2 diabetes mellitus with foot ulcer; E11.51 Type 2 diabetes mellitus with diabetic peripheral angiopathy without gangrene; I87.2 Venous insufficiency (chronic) (peripheral) | CPT/HCPCS: 82947; G0277 ==

== ENCOUNTER 2024-05-06 03:49 | Day surgery (SDC) | payer OTHER, MEDICARE | END 2024-05-06 23:00 | disposition home or self-care (01) | LOC: HBO 03:49 | DX: L89.623 Pressure ulcer of left heel, stage 3 (principal); E11.51 Type 2 diabetes mellitus with diabetic peripheral angiopathy without gangrene; E11.621 Type 2 diabetes mellitus with foot ulcer; I87.2 Venous insufficiency (chronic) (peripheral) | CPT/HCPCS: 82947; G0277 ==

== ENCOUNTER 2024-05-09 00:14 | Day surgery (SDC) | payer OTHER, MEDICARE | END 2024-05-09 23:00 | disposition home or self-care (01) | LOC: HBO 00:14 | DX: L89.623 Pressure ulcer of left heel, stage 3 (principal); E11.51 Type 2 diabetes mellitus with diabetic peripheral angiopathy without gangrene; E11.621 Type 2 diabetes mellitus with foot ulcer; I87.2 Venous insufficiency (chronic) (peripheral) | CPT/HCPCS: 82947; G0277 ==

== ENCOUNTER 2024-05-10 00:24 | Day surgery (SDC) | payer OTHER, MEDICARE | END 2024-05-10 23:00 | disposition home or self-care (01) | LOC: HBO 00:24 | DX: L89.623 Pressure ulcer of left heel, stage 3 (principal); E11.51 Type 2 diabetes mellitus with diabetic peripheral angiopathy without gangrene; E11.621 Type 2 diabetes mellitus with foot ulcer; I87.2 Venous insufficiency (chronic) (peripheral) | CPT/HCPCS: 82947; G0277 ==

== ENCOUNTER 2024-05-12 00:46 | Day surgery (SDC) | payer OTHER, MEDICARE | END 2024-05-12 23:00 | disposition home or self-care (01) | LOC: HBO 00:46 | DX: E11.621 Type 2 diabetes mellitus with foot ulcer (principal); L97.429 Non-pressure chronic ulcer of left heel and midfoot with unspecified severity; L59.8 Other specified disorders of the skin and subcutaneous tissue related to radiation; E11.51 Type 2 diabetes mellitus with diabetic peripheral angiopathy without gangrene; I87.2 Venous insufficiency (chronic) (peripheral) | CPT/HCPCS: 82947; G0277 ==

== ENCOUNTER 2024-05-13 02:05 | Day surgery (SDC) | payer OTHER, MEDICARE | END 2024-05-13 23:00 | disposition home or self-care (01) | LOC: HBO 02:05 | DX: L89.623 Pressure ulcer of left heel, stage 3 (principal); E11.51 Type 2 diabetes mellitus with diabetic peripheral angiopathy without gangrene; I87.2 Venous insufficiency (chronic) (peripheral); E11.621 Type 2 diabetes mellitus with foot ulcer | CPT/HCPCS: 82947; G0277 ==

== ENCOUNTER 2024-05-13 02:08 | Day surgery (SDC) | payer OTHER, MEDICARE ==
[2024-05-13] MEDS ORDERED: Lidocaine HCl 4% Cream 5 GM ONE (10:39)
== END 2024-05-13 23:00 | disposition home or self-care (01) ==
LOC: WOUND 02:08
DX: E11.621 Type 2 diabetes mellitus with foot ulcer (principal); L97.525 Non-pressure chronic ulcer of other part of left foot with muscle involvement without evidence of necrosis; L97.422 Non-pressure chronic ulcer of left heel and midfoot with fat layer exposed; E11.51 Type 2 diabetes mellitus with diabetic peripheral angiopathy without gangrene; I87.2 Venous insufficiency (chronic) (peripheral); E11.40 Type 2 diabetes mellitus with diabetic neuropathy, unspecified
CPT/HCPCS: A6213; A9270

== ENCOUNTER 2024-05-16 01:17 | Day surgery (SDC) | payer OTHER, MEDICARE | END 2024-05-16 23:00 | disposition home or self-care (01) | LOC: HBO 01:17 | DX: L89.623 Pressure ulcer of left heel, stage 3 (principal); E11.621 Type 2 diabetes mellitus with foot ulcer; E11.51 Type 2 diabetes mellitus with diabetic peripheral angiopathy without gangrene; I87.2 Venous insufficiency (chronic) (peripheral) | CPT/HCPCS: 82947; G0277 ==

== ENCOUNTER 2024-05-17 00:32 | Day surgery (SDC) | payer OTHER, MEDICARE | END 2024-05-17 23:00 | disposition home or self-care (01) | LOC: HBO 00:32 | DX: L89.623 Pressure ulcer of left heel, stage 3 (principal); E11.621 Type 2 diabetes mellitus with foot ulcer; E11.51 Type 2 diabetes mellitus with diabetic peripheral angiopathy without gangrene; I87.2 Venous insufficiency (chronic) (peripheral) | CPT/HCPCS: 82947; G0277 ==

== ENCOUNTER 2024-05-18 00:48 | Day surgery (SDC) | payer OTHER, MEDICARE | END 2024-05-18 23:00 | disposition home or self-care (01) | LOC: HBO 00:48 | DX: L89.623 Pressure ulcer of left heel, stage 3 (principal); E11.621 Type 2 diabetes mellitus with foot ulcer; E11.51 Type 2 diabetes mellitus with diabetic peripheral angiopathy without gangrene; I87.2 Venous insufficiency (chronic) (peripheral) | CPT/HCPCS: 82947; G0277 ==

== ENCOUNTER 2024-05-19 02:12 | Day surgery (SDC) | payer OTHER, MEDICARE | END 2024-05-19 23:00 | disposition home or self-care (01) | LOC: HBO 02:12 | DX: L89.623 Pressure ulcer of left heel, stage 3 (principal); E11.621 Type 2 diabetes mellitus with foot ulcer; E11.51 Type 2 diabetes mellitus with diabetic peripheral angiopathy without gangrene; I87.2 Venous insufficiency (chronic) (peripheral) | CPT/HCPCS: 82947; G0277 ==

== ENCOUNTER 2024-05-19 02:17 | Day surgery (SDC) | payer OTHER, MEDICARE ==
[2024-05-19] MEDS ORDERED: Lidocaine HCl 4% Cream 5 GM ONE (10:20)
== END 2024-05-19 23:00 | disposition home or self-care (01) ==
LOC: WOUND 02:17
DX: E11.621 Type 2 diabetes mellitus with foot ulcer (principal); L97.422 Non-pressure chronic ulcer of left heel and midfoot with fat layer exposed; L97.522 Non-pressure chronic ulcer of other part of left foot with fat layer exposed; L89.623 Pressure ulcer of left heel, stage 3; E11.51 Type 2 diabetes mellitus with diabetic peripheral angiopathy without gangrene; I87.2 Venous insufficiency (chronic) (peripheral)
CPT/HCPCS: A6213; A9270

== ENCOUNTER 2024-05-20 05:01 | Day surgery (SDC) | payer OTHER, MEDICARE | END 2024-05-20 23:00 | disposition home or self-care (01) | LOC: HBO 05:01 | DX: L89.623 Pressure ulcer of left heel, stage 3 (principal); E11.621 Type 2 diabetes mellitus with foot ulcer; E11.51 Type 2 diabetes mellitus with diabetic peripheral angiopathy without gangrene; I87.2 Venous insufficiency (chronic) (peripheral) | CPT/HCPCS: 82947; G0277 ==

== ENCOUNTER 2024-05-23 02:16 | Day surgery (SDC) | payer OTHER, MEDICARE | END 2024-05-23 23:00 | disposition home or self-care (01) | LOC: HBO 02:16 | DX: E11.621 Type 2 diabetes mellitus with foot ulcer (principal); L97.429 Non-pressure chronic ulcer of left heel and midfoot with unspecified severity; L59.8 Other specified disorders of the skin and subcutaneous tissue related to radiation; E11.51 Type 2 diabetes mellitus with diabetic peripheral angiopathy without gangrene; I87.2 Venous insufficiency (chronic) (peripheral) | CPT/HCPCS: 82947; G0277 ==

== ENCOUNTER 2024-05-24 03:16 | Day surgery (SDC) | payer MEDICARE, OTHER ==
[2024-05-24 10:51] VITALS: BP 135/77
--- NOTE | 2024-05-24 12:12 | NUR ---
PT REPORTS NOT HAVING A WALLET VERIFICATION CARD FOR HIS MEDIPORT TO INDICATE THE TYPE OF PORT HE HAS. NO NUBS PALPATED. PT REPORTS HE DOES NOT BELIEVE HE HAS A POWERPORT. THEREFORE, STANDARD NEEDLE USED FOR TODAY'S VISIT. PT IS LEAVING HERE TO GO TO IMAGING FOR A PET SCAN TODAY.
== END 2024-05-24 10:59 | disposition home or self-care (01) ==
LOC: ATC 03:16
DX: C83.38 Diffuse large B-cell lymphoma, lymph nodes of multiple sites (principal); I10 Essential (primary) hypertension; E78.5 Hyperlipidemia, unspecified; I25.10 Atherosclerotic heart disease of native coronary artery without angina pectoris; E11.42 Type 2 diabetes mellitus with diabetic polyneuropathy; G47.33 Obstructive sleep apnea (adult) (pediatric); K21.9 Gastro-esophageal reflux disease without esophagitis; Z95.1 Presence of aortocoronary bypass graft; Z88.8 Allergy status to other drugs, medicaments and biological substances; Z79.4 Long term (current) use of insulin; Z79.84 Long term (current) use of oral hypoglycemic drugs; Z79.899 Other long term (current) drug therapy
CPT/HCPCS: 78815; 96523; A9552; J1642

== ENCOUNTER 2024-05-25 02:32 | Day surgery (SDC) | payer OTHER, MEDICARE | END 2024-05-25 23:00 | disposition home or self-care (01) | LOC: HBO 02:32 | DX: E11.621 Type 2 diabetes mellitus with foot ulcer (principal); L97.429 Non-pressure chronic ulcer of left heel and midfoot with unspecified severity; L59.8 Other specified disorders of the skin and subcutaneous tissue related to radiation; E11.51 Type 2 diabetes mellitus with diabetic peripheral angiopathy without gangrene; I87.2 Venous insufficiency (chronic) (peripheral) | CPT/HCPCS: 82947; G0277 ==

== ENCOUNTER 2024-05-27 04:07 | Day surgery (SDC) | payer OTHER, MEDICARE | END 2024-05-27 23:00 | disposition home or self-care (01) | LOC: HBO 04:07 | DX: L89.623 Pressure ulcer of left heel, stage 3 (principal); E11.621 Type 2 diabetes mellitus with foot ulcer; E11.51 Type 2 diabetes mellitus with diabetic peripheral angiopathy without gangrene; I87.2 Venous insufficiency (chronic) (peripheral) | CPT/HCPCS: 82947; G0277 ==

== ENCOUNTER 2024-05-27 04:15 | Day surgery (SDC) | payer OTHER, MEDICARE ==
[2024-05-27] MEDS ORDERED: Lidocaine HCl 4% Cream 5 GM ONE (10:33)
== END 2024-05-27 23:00 | disposition home or self-care (01) ==
LOC: WOUND 04:15
DX: E11.621 Type 2 diabetes mellitus with foot ulcer (principal); L97.422 Non-pressure chronic ulcer of left heel and midfoot with fat layer exposed; L89.623 Pressure ulcer of left heel, stage 3; E11.51 Type 2 diabetes mellitus with diabetic peripheral angiopathy without gangrene; I87.2 Venous insufficiency (chronic) (peripheral)
CPT/HCPCS: A6213; A9270

== ENCOUNTER 2024-06-10 04:19 | Day surgery (SDC) | payer OTHER, MEDICARE ==
[2024-06-10] MEDS ORDERED: Lidocaine HCl 4% Cream 5 GM ONE (09:12)
== END 2024-06-10 23:00 | disposition home or self-care (01) ==
LOC: WOUND 04:19
DX: E11.621 Type 2 diabetes mellitus with foot ulcer (principal); L97.422 Non-pressure chronic ulcer of left heel and midfoot with fat layer exposed; L97.822 Non-pressure chronic ulcer of other part of left lower leg with fat layer exposed; E11.51 Type 2 diabetes mellitus with diabetic peripheral angiopathy without gangrene; I87.2 Venous insufficiency (chronic) (peripheral)
CPT/HCPCS: A6213; A9270

== ENCOUNTER 2024-06-13 00:53 | Day surgery (SDC) | payer OTHER, MEDICARE | END 2024-06-13 23:00 | disposition home or self-care (01) | LOC: HBO 00:53 | DX: E11.621 Type 2 diabetes mellitus with foot ulcer (principal); L97.429 Non-pressure chronic ulcer of left heel and midfoot with unspecified severity; L59.8 Other specified disorders of the skin and subcutaneous tissue related to radiation; E11.51 Type 2 diabetes mellitus with diabetic peripheral angiopathy without gangrene; I87.2 Venous insufficiency (chronic) (peripheral) | CPT/HCPCS: 82947; G0277 ==

== ENCOUNTER 2024-06-14 03:55 | Day surgery (SDC) | payer OTHER, MEDICARE ==
[2024-06-14] MEDS ORDERED: Lidocaine HCl 4% Cream 5 GM ONE (09:02)
== END 2024-06-14 23:00 | disposition home or self-care (01) ==
LOC: WOUND 03:55
DX: L89.623 Pressure ulcer of left heel, stage 3 (principal); E11.621 Type 2 diabetes mellitus with foot ulcer; E11.51 Type 2 diabetes mellitus with diabetic peripheral angiopathy without gangrene; I87.2 Venous insufficiency (chronic) (peripheral)
CPT/HCPCS: A9270

== ENCOUNTER 2024-06-14 08:48 | Day surgery (SDC) | payer OTHER, MEDICARE | END 2024-06-14 23:00 | disposition home or self-care (01) | LOC: HBO 08:48 | DX: E11.621 Type 2 diabetes mellitus with foot ulcer (principal); L97.429 Non-pressure chronic ulcer of left heel and midfoot with unspecified severity; L59.8 Other specified disorders of the skin and subcutaneous tissue related to radiation; E11.51 Type 2 diabetes mellitus with diabetic peripheral angiopathy without gangrene; I87.2 Venous insufficiency (chronic) (peripheral) | CPT/HCPCS: 82947; G0277 ==

== ENCOUNTER 2024-06-15 01:37 | Day surgery (SDC) | payer OTHER, MEDICARE | END 2024-06-15 23:00 | disposition home or self-care (01) | LOC: HBO 01:37 | DX: E11.621 Type 2 diabetes mellitus with foot ulcer (principal); L97.429 Non-pressure chronic ulcer of left heel and midfoot with unspecified severity; L59.8 Other specified disorders of the skin and subcutaneous tissue related to radiation; I87.2 Venous insufficiency (chronic) (peripheral); E11.51 Type 2 diabetes mellitus with diabetic peripheral angiopathy without gangrene | CPT/HCPCS: 82947; G0277 ==

== ENCOUNTER 2024-06-16 00:11 | Day surgery (SDC) | payer OTHER, MEDICARE | END 2024-06-16 23:00 | disposition home or self-care (01) | LOC: HBO 00:11 | DX: L89.623 Pressure ulcer of left heel, stage 3 (principal); E11.621 Type 2 diabetes mellitus with foot ulcer; E11.51 Type 2 diabetes mellitus with diabetic peripheral angiopathy without gangrene; I87.2 Venous insufficiency (chronic) (peripheral) | CPT/HCPCS: 82947; G0277 ==

== ENCOUNTER 2024-06-20 01:13 | Day surgery (SDC) | payer OTHER, MEDICARE | END 2024-06-20 23:00 | disposition home or self-care (01) | LOC: HBO 01:13 | DX: E11.621 Type 2 diabetes mellitus with foot ulcer (principal); L97.429 Non-pressure chronic ulcer of left heel and midfoot with unspecified severity; L59.8 Other specified disorders of the skin and subcutaneous tissue related to radiation; E11.51 Type 2 diabetes mellitus with diabetic peripheral angiopathy without gangrene; I87.2 Venous insufficiency (chronic) (peripheral) | CPT/HCPCS: 82947; G0277 ==

== ENCOUNTER → 2024-06-21 | Day surgery (SDC) | payer OTHER, MEDICARE | LOC: HBO 02:31 | DX: L89.623 Pressure ulcer of left heel, stage 3 (principal); E11.621 Type 2 diabetes mellitus with foot ulcer; E11.51 Type 2 diabetes mellitus with diabetic peripheral angiopathy without gangrene; I87.2 Venous insufficiency (chronic) (peripheral) | CPT/HCPCS: 82947; G0277 ==

== ENCOUNTER → 2024-06-21 | Day surgery (SDC) | payer OTHER, MEDICARE ==
[~2024-06-21] MED LIST changes: +Lidocaine HCl 4% Cream 5 GM ONE
== END ==
LOC: WOUND 02:28
DX: E11.621 Type 2 diabetes mellitus with foot ulcer (principal); L97.422 Non-pressure chronic ulcer of left heel and midfoot with fat layer exposed; L89.623 Pressure ulcer of left heel, stage 3; E11.51 Type 2 diabetes mellitus with diabetic peripheral angiopathy without gangrene; I87.2 Venous insufficiency (chronic) (peripheral)
CPT/HCPCS: A9270

== ENCOUNTER → 2024-06-22 | Day surgery (SDC) | payer OTHER, MEDICARE ==
[~2024-06-22] MED LIST changes: -Lidocaine HCl 4% Cream 5 GM ONE
== END ==
LOC: HBO 02:57
DX: L89.623 Pressure ulcer of left heel, stage 3 (principal); E11.621 Type 2 diabetes mellitus with foot ulcer; E11.51 Type 2 diabetes mellitus with diabetic peripheral angiopathy without gangrene; I87.2 Venous insufficiency (chronic) (peripheral)
CPT/HCPCS: 82947; G0277

== ENCOUNTER 2024-06-23 04:17 | Day surgery (SDC) | payer OTHER, MEDICARE | END 2024-06-23 23:00 | disposition home or self-care (01) | LOC: HBO 04:17 | DX: E11.621 Type 2 diabetes mellitus with foot ulcer (principal); L97.429 Non-pressure chronic ulcer of left heel and midfoot with unspecified severity; L59.8 Other specified disorders of the skin and subcutaneous tissue related to radiation; E11.51 Type 2 diabetes mellitus with diabetic peripheral angiopathy without gangrene; I87.2 Venous insufficiency (chronic) (peripheral) | CPT/HCPCS: 82947; G0277 ==

== ENCOUNTER 2024-06-24 03:31 | Day surgery (SDC) | payer OTHER, MEDICARE | END 2024-06-24 23:00 | disposition home or self-care (01) | LOC: HBO 03:31 | DX: L89.623 Pressure ulcer of left heel, stage 3 (principal); E11.621 Type 2 diabetes mellitus with foot ulcer; E11.51 Type 2 diabetes mellitus with diabetic peripheral angiopathy without gangrene; I87.2 Venous insufficiency (chronic) (peripheral) | CPT/HCPCS: 82947; G0277 ==

== ENCOUNTER 2024-06-27 01:42 | Day surgery (SDC) | payer OTHER, MEDICARE | END 2024-06-27 23:00 | disposition home or self-care (01) | LOC: HBO 01:42 | DX: L89.623 Pressure ulcer of left heel, stage 3 (principal); E11.621 Type 2 diabetes mellitus with foot ulcer; E11.51 Type 2 diabetes mellitus with diabetic peripheral angiopathy without gangrene; I87.2 Venous insufficiency (chronic) (peripheral) | CPT/HCPCS: 82947; G0277 ==

== ENCOUNTER 2024-06-28 04:36 | Day surgery (SDC) | payer OTHER, MEDICARE | END 2024-06-28 22:50 | disposition home or self-care (01) | LOC: HBO 04:36 | DX: L89.623 Pressure ulcer of left heel, stage 3 (principal); E11.622 Type 2 diabetes mellitus with other skin ulcer; E11.51 Type 2 diabetes mellitus with diabetic peripheral angiopathy without gangrene; I87.2 Venous insufficiency (chronic) (peripheral) | CPT/HCPCS: 82947; G0277 ==

== ENCOUNTER 2024-07-01 02:40 | Day surgery (SDC) | payer OTHER, MEDICARE | END 2024-07-01 23:00 | disposition home or self-care (01) | LOC: HBO 02:40 | DX: L89.623 Pressure ulcer of left heel, stage 3 (principal); E11.621 Type 2 diabetes mellitus with foot ulcer; E11.51 Type 2 diabetes mellitus with diabetic peripheral angiopathy without gangrene; I87.2 Venous insufficiency (chronic) (peripheral) | CPT/HCPCS: 82947; G0277 ==

== ENCOUNTER → 2024-07-04 | Day surgery (SDC) | payer OTHER, MEDICARE | LOC: HBO 10:47 | DX: E11.621 Type 2 diabetes mellitus with foot ulcer (principal); L89.623 Pressure ulcer of left heel, stage 3; I87.2 Venous insufficiency (chronic) (peripheral); E11.51 Type 2 diabetes mellitus with diabetic peripheral angiopathy without gangrene | CPT/HCPCS: 82947; G0277 ==

== ENCOUNTER → 2024-07-05 | Day surgery (SDC) | payer OTHER, MEDICARE ==
[~2024-07-05] MED LIST changes: +Lidocaine HCl 4% Cream 5 GM ONE
== END ==
LOC: WOUND 04:37
DX: E11.621 Type 2 diabetes mellitus with foot ulcer (principal); L97.422 Non-pressure chronic ulcer of left heel and midfoot with fat layer exposed; L89.623 Pressure ulcer of left heel, stage 3; E11.51 Type 2 diabetes mellitus with diabetic peripheral angiopathy without gangrene; I87.2 Venous insufficiency (chronic) (peripheral)
CPT/HCPCS: A9270

== ENCOUNTER → 2024-07-05 | Day surgery (SDC) | payer OTHER, MEDICARE ==
[~2024-07-05] MED LIST changes: -Lidocaine HCl 4% Cream 5 GM ONE
== END ==
LOC: HBO 04:40
DX: L89.623 Pressure ulcer of left heel, stage 3 (principal); E11.621 Type 2 diabetes mellitus with foot ulcer; E11.51 Type 2 diabetes mellitus with diabetic peripheral angiopathy without gangrene; I87.2 Venous insufficiency (chronic) (peripheral)
CPT/HCPCS: 82947; G0277

== ENCOUNTER → 2024-07-06 | Day surgery (SDC) | payer OTHER, MEDICARE | LOC: HBO 01:40 | DX: L89.623 Pressure ulcer of left heel, stage 3 (principal); E11.621 Type 2 diabetes mellitus with foot ulcer; E11.51 Type 2 diabetes mellitus with diabetic peripheral angiopathy without gangrene; I87.2 Venous insufficiency (chronic) (peripheral) | CPT/HCPCS: 82947; G0277 ==

== ENCOUNTER 2024-07-08 02:54 | Day surgery (SDC) | payer OTHER, MEDICARE | END 2024-07-08 23:00 | disposition home or self-care (01) | LOC: HBO 02:54 | DX: L89.623 Pressure ulcer of left heel, stage 3 (principal); E11.621 Type 2 diabetes mellitus with foot ulcer; E11.51 Type 2 diabetes mellitus with diabetic peripheral angiopathy without gangrene; I87.2 Venous insufficiency (chronic) (peripheral) | CPT/HCPCS: 82947; G0277 ==

== ENCOUNTER 2024-07-18 05:54 | Day surgery (SDC) | payer OTHER, MEDICARE | END 2024-07-18 23:00 | disposition home or self-care (01) | LOC: HBO 05:54 | DX: L89.623 Pressure ulcer of left heel, stage 3 (principal); E11.621 Type 2 diabetes mellitus with foot ulcer; E11.51 Type 2 diabetes mellitus with diabetic peripheral angiopathy without gangrene; I87.2 Venous insufficiency (chronic) (peripheral) | CPT/HCPCS: 82947; G0277 ==

== ENCOUNTER 2024-07-19 02:23 | Day surgery (SDC) | payer OTHER, MEDICARE ==
[2024-07-19] MEDS ORDERED: Lidocaine HCl 4% Cream 5 GM ONE (09:29)
== END 2024-07-19 23:42 | disposition home or self-care (01) ==
LOC: WOUND 02:23
DX: E11.621 Type 2 diabetes mellitus with foot ulcer (principal); L97.422 Non-pressure chronic ulcer of left heel and midfoot with fat layer exposed; E11.51 Type 2 diabetes mellitus with diabetic peripheral angiopathy without gangrene; I87.2 Venous insufficiency (chronic) (peripheral); E11.40 Type 2 diabetes mellitus with diabetic neuropathy, unspecified
CPT/HCPCS: A9270; G0463

== ENCOUNTER 2024-07-19 02:31 | Day surgery (SDC) | payer OTHER, MEDICARE | END 2024-07-19 23:42 | disposition home or self-care (01) | LOC: HBO 02:31 | DX: L89.623 Pressure ulcer of left heel, stage 3 (principal); E11.621 Type 2 diabetes mellitus with foot ulcer; E11.51 Type 2 diabetes mellitus with diabetic peripheral angiopathy without gangrene; I87.2 Venous insufficiency (chronic) (peripheral) | CPT/HCPCS: 82947; G0277 ==

== ENCOUNTER 2024-07-20 02:34 | Day surgery (SDC) | payer OTHER, MEDICARE | END 2024-07-20 23:00 | disposition home or self-care (01) | LOC: HBO 02:34 | DX: L89.623 Pressure ulcer of left heel, stage 3 (principal); E11.621 Type 2 diabetes mellitus with foot ulcer; E11.51 Type 2 diabetes mellitus with diabetic peripheral angiopathy without gangrene; I87.2 Venous insufficiency (chronic) (peripheral) | CPT/HCPCS: 82947; G0277 ==

== ENCOUNTER 2024-07-21 01:13 | Day surgery (SDC) | payer OTHER, MEDICARE | END 2024-07-21 23:00 | disposition home or self-care (01) | LOC: HBO 01:13 | DX: C83.38 Diffuse large B-cell lymphoma, lymph nodes of multiple sites (principal); E11.51 Type 2 diabetes mellitus with diabetic peripheral angiopathy without gangrene; E11.621 Type 2 diabetes mellitus with foot ulcer; L89.623 Pressure ulcer of left heel, stage 3; I87.2 Venous insufficiency (chronic) (peripheral); I10 Essential (primary) hypertension; E78.5 Hyperlipidemia, unspecified; I25.10 Atherosclerotic heart disease of native coronary artery without angina pectoris; M19.90 Unspecified osteoarthritis, unspecified site; J43.2 Centrilobular emphysema; Z86.73 Personal history of transient ischemic attack (TIA), and cerebral infarction without residual deficits; Z87.891 Personal history of nicotine dependence; Z79.02 Long term (current) use of antithrombotics/antiplatelets; Z79.4 Long term (current) use of insulin; Z79.621 Long term (current) use of calcineurin inhibitor; Z79.84 Long term (current) use of oral hypoglycemic drugs; Z79.899 Other long term (current) drug therapy; Z88.8 Allergy status to other drugs, medicaments and biological substances; Z91.041 Radiographic dye allergy status; Z94.4 Liver transplant status; Z95.1 Presence of aortocoronary bypass graft | CPT/HCPCS: 82947; 96523; G0277; J1642 ==

== ENCOUNTER 2024-07-21 01:33 | Day surgery (SDC) | payer MEDICARE, OTHER ==
[2024-07-21 09:56] VITALS: BP 137/77
== END 2024-07-21 09:59 | disposition home or self-care (01) ==
LOC: ATC 01:33
DX: C83.38 Diffuse large B-cell lymphoma, lymph nodes of multiple sites (principal); I10 Essential (primary) hypertension; E11.9 Type 2 diabetes mellitus without complications; E78.5 Hyperlipidemia, unspecified; I25.10 Atherosclerotic heart disease of native coronary artery without angina pectoris; M19.90 Unspecified osteoarthritis, unspecified site; J43.2 Centrilobular emphysema; Z86.73 Personal history of transient ischemic attack (TIA), and cerebral infarction without residual deficits; Z87.891 Personal history of nicotine dependence; Z79.02 Long term (current) use of antithrombotics/antiplatelets; Z79.4 Long term (current) use of insulin; Z79.621 Long term (current) use of calcineurin inhibitor; Z79.84 Long term (current) use of oral hypoglycemic drugs; Z79.899 Other long term (current) drug therapy; Z88.8 Allergy status to other drugs, medicaments and biological substances; Z91.041 Radiographic dye allergy status; Z94.4 Liver transplant status; Z95.1 Presence of aortocoronary bypass graft
CPT/HCPCS: 96523; J1642

== ENCOUNTER 2024-07-22 05:18 | Day surgery (SDC) | payer OTHER, MEDICARE ==
[2024-07-22] MEDS ORDERED: Lidocaine HCl 4% Cream 5 GM ONE (15:45)
== END 2024-07-22 23:00 | disposition home or self-care (01) ==
LOC: HBO 05:18 → WOUND 05:18 → HBO 09:06 → WOUND 23:00
DX: E11.621 Type 2 diabetes mellitus with foot ulcer (principal); L97.422 Non-pressure chronic ulcer of left heel and midfoot with fat layer exposed; L89.623 Pressure ulcer of left heel, stage 3; E11.51 Type 2 diabetes mellitus with diabetic peripheral angiopathy without gangrene; I87.2 Venous insufficiency (chronic) (peripheral)
CPT/HCPCS: A9270

== ENCOUNTER 2024-07-25 03:34 | Day surgery (SDC) | payer OTHER, MEDICARE | END 2024-07-25 23:24 | disposition home or self-care (01) | LOC: HBO 03:34 | DX: L89.623 Pressure ulcer of left heel, stage 3 (principal); E11.621 Type 2 diabetes mellitus with foot ulcer; E11.51 Type 2 diabetes mellitus with diabetic peripheral angiopathy without gangrene; I87.2 Venous insufficiency (chronic) (peripheral) | CPT/HCPCS: 82947; G0277 ==

== ENCOUNTER 2024-07-26 02:08 | Day surgery (SDC) | payer OTHER, MEDICARE ==
[2024-07-26] MEDS ORDERED: Lidocaine HCl 4% Cream 5 GM ONE (09:27)
== END 2024-07-26 23:44 | disposition home or self-care (01) ==
LOC: WOUND 02:08
DX: L89.623 Pressure ulcer of left heel, stage 3 (principal); E11.621 Type 2 diabetes mellitus with foot ulcer; E11.51 Type 2 diabetes mellitus with diabetic peripheral angiopathy without gangrene; I87.2 Venous insufficiency (chronic) (peripheral)
CPT/HCPCS: A9270; G0463

== ENCOUNTER 2024-07-26 02:12 | Day surgery (SDC) | payer OTHER, MEDICARE | END 2024-07-26 23:44 | disposition home or self-care (01) | LOC: HBO 02:12 | DX: L89.623 Pressure ulcer of left heel, stage 3 (principal); E11.621 Type 2 diabetes mellitus with foot ulcer; E11.51 Type 2 diabetes mellitus with diabetic peripheral angiopathy without gangrene; I87.2 Venous insufficiency (chronic) (peripheral) | CPT/HCPCS: 82947; G0277 ==

== ENCOUNTER 2024-07-27 03:11 | Day surgery (SDC) | payer OTHER, MEDICARE | END 2024-07-27 23:00 | disposition home or self-care (01) | LOC: HBO 03:11 | DX: L89.623 Pressure ulcer of left heel, stage 3 (principal); E11.621 Type 2 diabetes mellitus with foot ulcer; E11.51 Type 2 diabetes mellitus with diabetic peripheral angiopathy without gangrene; I87.2 Venous insufficiency (chronic) (peripheral); Z77.098 Contact with and (suspected) exposure to other hazardous, chiefly nonmedicinal, chemicals | CPT/HCPCS: 82947; G0277 ==

== ENCOUNTER 2024-07-28 02:15 | Day surgery (SDC) | payer OTHER, MEDICARE | END 2024-07-28 23:00 | disposition home or self-care (01) | LOC: HBO 02:15 | DX: L89.623 Pressure ulcer of left heel, stage 3 (principal); E11.621 Type 2 diabetes mellitus with foot ulcer; E11.51 Type 2 diabetes mellitus with diabetic peripheral angiopathy without gangrene; I87.2 Venous insufficiency (chronic) (peripheral) | CPT/HCPCS: 82947; G0277 ==

== ENCOUNTER 2024-07-29 04:32 | Day surgery (SDC) | payer OTHER, MEDICARE | END 2024-07-29 23:00 | disposition home or self-care (01) | LOC: HBO 04:32 | DX: E11.621 Type 2 diabetes mellitus with foot ulcer (principal); L89.623 Pressure ulcer of left heel, stage 3; E11.51 Type 2 diabetes mellitus with diabetic peripheral angiopathy without gangrene; I87.2 Venous insufficiency (chronic) (peripheral) | CPT/HCPCS: 82947; G0277 ==

== ENCOUNTER 2024-08-01 01:42 | Day surgery (SDC) | payer OTHER, MEDICARE | END 2024-08-01 23:30 | disposition home or self-care (01) | LOC: HBO 01:42 | DX: L89.623 Pressure ulcer of left heel, stage 3 (principal); E11.621 Type 2 diabetes mellitus with foot ulcer; E11.51 Type 2 diabetes mellitus with diabetic peripheral angiopathy without gangrene; I87.2 Venous insufficiency (chronic) (peripheral) | CPT/HCPCS: 82947; G0277 ==

== ENCOUNTER 2024-08-03 05:47 | Day surgery (SDC) | payer OTHER, MEDICARE | END 2024-08-03 23:00 | LOC: HBO 05:47 | DX: L89.623 Pressure ulcer of left heel, stage 3 (principal); E11.621 Type 2 diabetes mellitus with foot ulcer; E11.51 Type 2 diabetes mellitus with diabetic peripheral angiopathy without gangrene; I87.2 Venous insufficiency (chronic) (peripheral) | CPT/HCPCS: 82947; G0277 ==

== ENCOUNTER 2024-08-04 01:18 | Day surgery (SDC) | payer OTHER, MEDICARE ==
[2024-08-04] MEDS ORDERED: Lidocaine HCl 4% Cream 5 GM ONE (09:25)
[2024-08-04] MEDS ORDERED: Silver Nitr/Potassium Nitrate 1 EA APPL ONE (10:03)
== END 2024-08-04 23:00 | disposition home or self-care (01) ==
LOC: WOUND 01:18
DX: E11.621 Type 2 diabetes mellitus with foot ulcer (principal); L97.522 Non-pressure chronic ulcer of other part of left foot with fat layer exposed; L97.422 Non-pressure chronic ulcer of left heel and midfoot with fat layer exposed; E11.51 Type 2 diabetes mellitus with diabetic peripheral angiopathy without gangrene; I87.2 Venous insufficiency (chronic) (peripheral); E11.40 Type 2 diabetes mellitus with diabetic neuropathy, unspecified; Z85.05 Personal history of malignant neoplasm of liver; Z94.4 Liver transplant status
CPT/HCPCS: A9270

== ENCOUNTER 2024-08-12 08:00 | Day surgery (SDC) | payer OTHER, MEDICARE ==
[~2024-08-12 08:00] MED LIST changes: +CENTRUM SILVER1 EAC2 PO; -PRENATAL TABLE1 EAC2 PO
== END 2024-08-12 23:57 | disposition home or self-care (01) ==
LOC: HBO 08:00
DX: L89.623 Pressure ulcer of left heel, stage 3 (principal); E11.621 Type 2 diabetes mellitus with foot ulcer; E11.51 Type 2 diabetes mellitus with diabetic peripheral angiopathy without gangrene; I87.2 Venous insufficiency (chronic) (peripheral)
CPT/HCPCS: 82947; G0277

== ENCOUNTER 2024-08-19 01:35 | Day surgery (SDC) | payer OTHER, MEDICARE | END 2024-08-19 23:00 | disposition home or self-care (01) | LOC: HBO 01:35 | DX: L89.623 Pressure ulcer of left heel, stage 3 (principal); E11.621 Type 2 diabetes mellitus with foot ulcer; E11.51 Type 2 diabetes mellitus with diabetic peripheral angiopathy without gangrene; I87.2 Venous insufficiency (chronic) (peripheral) | CPT/HCPCS: 82947; G0277 ==

== ENCOUNTER 2024-08-21 17:52 | Inpatient (IN) | payer OTHER, MEDICARE ==
[~2024-08-21] VITALS: Ht 182.9 cm; Wt 97.0 kg
[~2024-08-21 17:52] MED LIST changes: +NS 1,000 ML IV SCH
[2024-08-21] MEDS ORDERED: Morphine Sulfate 4 MG/1 ML Injection IV ONE (19:00)
[2024-08-21] MEDS ORDERED: Ondansetron HCl 2 MG / ML 2ML Vial IV ONE (19:00)
[2024-08-21 19:18] LABS: BASOPHILS ABSOLUTE AUTO 0.02 K/mm3 (0.00-0.23); BASOPHILS PERCENT AUTO 0 % (0-2); EOSINOPHILS ABSOLUTE AUTO 0.06 K/mm3 (0.00-0.68); EOSINOPHILS PERCENT AUTO 1 % (0-6); Hematocrit 40.6 % (37.0-53.0); Hemoglobin 13.4 g/dL (13.5-17.5); IMMATURE GRAN ABSOLUTE AUTO 0.05 K/mm3 (0.00-0.10); IMMATURE GRAN PERCENT AUTO 1 % (0-1); LYMPHOCYTES ABSOLUTE AUTO 0.98 K/mm3 (0.84-5.20); LYMPHOCYTES PERCENT AUTO 9 % (21-46); MONOCYTES ABSOLUTE AUTO 0.59 K/mm3 (0.16-1.47); MONOCYTES PERCENT AUTO 6 % (4-13); Mean Corpuscular HGB 29.1 pg (26.0-34.0); Mean Corpuscular Volume 88 fL (80-100); Mean Platelet Volume 12.4 fL (9.1-12.4); NEUTROPHILS ABSOLUTE AUTO 8.68 K/mm3 (1.96-9.15); NEUTROPHILS PERCENT AUTO 84 % (41-73); Platelet Count 100 K/mm3 (150-400); RDW Coefficient Variation 13.7 % (11.7-14.2); RDW Standard Deviation 43.8 fL (35.1-46.3); Red Blood Cell Count 4.61 M/mm3 (4.30-5.90); White Blood Cell Count 10.38 K/mm3 (4.00-11.30)
[2024-08-21 19:39] LABS: Albumin, Blood 3.2 g/dL (3.4-5.0); Albumin/Globulin Ratio 0.8 (0.8-1.8); Bilirubin, Total 0.6 mg/dL (0.1-1.0); Calcium, Blood 9.3 mg/dL (8.5-10.1); Creatinine, Blood 0.7 mg/dL (0.60-1.20); Globulin, Blood 3.9 g/dL (2.2-4.0); Magnesium, Blood 1.8 mg/dL (1.6-2.4); Potassium, Blood 3.8 mmol/L (3.5-5.5); Total Protein, Blood 7.1 g/dL (6.4-8.2)
[2024-08-21] MEDS ORDERED: HYDROmorphone HCl/Pf 1MG SYR IV ONE ×2 (19:55→21:35)
[2024-08-21 21:29] LABS: Source, Urine Clean Catch
[2024-08-21 21:34] LABS: Bilirubin, Urine Neg (Neg); Blood, Urine Neg (Neg); Glucose Qualitative, Urine 4+ (Neg); Ketones, Urine Neg (Neg); Leukocyte Esterase, Urine Neg (Neg); Nitrite, Urine Neg (Neg); Protein, Urine Neg (Neg); Urobilinogen, Urine NORM (Normal)
[2024-08-21 21:37] LABS: Appearance, Urine Clear (Clear); Color, Urine Yellow (P-Yellow)
[2024-08-21] MEDS ORDERED: Ondansetron 4 MG TAB PO PRN (23:15)
[2024-08-21 23:42] VITALS: BP 149/72
[2024-08-21] MEDS ORDERED: FentaNYL Citrate 50 MCG/ML 2 ML Injection IV PRN (23:45)
[2024-08-21] MEDS ORDERED: HYDROmorphone HCl/Pf 1MG SYR IV PRN (23:45)
[2024-08-22] MEDS ORDERED: Insulin Regular 100 UNIT/ML 10ML Vial SC SCH (00:01)
--- NOTE | 2024-08-22 00:33 | NUR ---
HOME MEDS: PT UNABLE TO FULLY VERIFY HOME MED LIST. WAS ABLE TO REVIED AND CONFIRM MOST, BUT NEEDS TO BRING IN HOME LIST FOR VERIFICATION. OXYCODONE: PT STATES HE HAS BEEN TAKING 20 MG OXYCODONE THREE TIMES A DAY FOR THE LAST 2 MONTHS. PT STATES "IT EQUALS OUT TO BE ABOUT THE SAME AMOUNT WHEN I TAKE LESS MORE OFTEN"
[2024-08-22 04:37] VITALS: BP 119/76
[2024-08-22 05:40] LABS: BASOPHILS ABSOLUTE AUTO 0.02 K/mm3 (0.00-0.23); BASOPHILS PERCENT AUTO 0 % (0-2); EOSINOPHILS ABSOLUTE AUTO 0.03 K/mm3 (0.00-0.68); EOSINOPHILS PERCENT AUTO 0 % (0-6); Hematocrit 42.1 % (37.0-53.0); Hemoglobin 13.7 g/dL (13.5-17.5); IMMATURE GRAN ABSOLUTE AUTO 0.04 K/mm3 (0.00-0.10); IMMATURE GRAN PERCENT AUTO 1 % (0-1); LYMPHOCYTES ABSOLUTE AUTO 1.08 K/mm3 (0.84-5.20); LYMPHOCYTES PERCENT AUTO 14 % (21-46); MONOCYTES ABSOLUTE AUTO 0.46 K/mm3 (0.16-1.47); MONOCYTES PERCENT AUTO 6 % (4-13); Mean Corpuscular HGB 28.8 pg (26.0-34.0); Mean Corpuscular HGB Conc 32.5 g/dL (31.5-36.5); Mean Corpuscular Volume 88 fL (80-100); NEUTROPHILS ABSOLUTE AUTO 6.38 K/mm3 (1.96-9.15); NEUTROPHILS PERCENT AUTO 80 % (41-73); Platelet Count 86 K/mm3 (150-400); RDW Coefficient Variation 13.8 % (11.7-14.2); RDW Standard Deviation 44.5 fL (35.1-46.3); Red Blood Cell Count 4.76 M/mm3 (4.30-5.90); White Blood Cell Count 8.01 K/mm3 (4.00-11.30)
[2024-08-22 05:59] LABS: Albumin, Blood 3.3 g/dL (3.4-5.0); Albumin/Globulin Ratio 0.8 (0.8-1.8); Bilirubin, Total 0.7 mg/dL (0.1-1.0); Calcium, Blood 9.5 mg/dL (8.5-10.1); Creatinine, Blood 0.67 mg/dL (0.60-1.20); Globulin, Blood 3.9 g/dL (2.2-4.0); Potassium, Blood 4.2 mmol/L (3.5-5.5); Total Protein, Blood 7.2 g/dL (6.4-8.2)
[2024-08-22 06:56] VITALS: BP 127/68
--- NOTE | 2024-08-22 07:25 | NUR ---
PT VSS SINCE ARRIVING TO FLOOR; HR SINUS 80'S PER TELE MONITOR. ABD REMAINS MILDLY DISTENDED, SOFT, TENDER TO PALP. BT ACTIVE, PT REP NO FLATUS, DENIES N/V. PT AIN MGD W/1MG IV DILAUDID W/REP RELIEF. PT NPO, IVF CONT PER ORDERS. PICS OF LLE FOOT WOUNDS OBTAINED, DRESSING CHANGED. PT INDEP IN ROOM, JOSE WELL, IS USING CALL LIGHT FOR ASSISTANCE.
[2024-08-22] MEDS ORDERED: Insulin Glargine-Yfgn 100 Unit/mL 3 ML SYR SC SCH (09:00)
[2024-08-22] MEDS ORDERED: Enoxaparin 40 MG/0.4 ML SYR SC SCH (09:00)
[2024-08-22] MEDS ORDERED: Methocarbamol 500 MG Tab PO PRN (12:05)
[2024-08-22] MEDS ORDERED: HydrALAZINE HCl 20 MG / ML 1ML Vial IV PRN (14:30)
[2024-08-22 14:43] VITALS: BP 109/50
--- NOTE | 2024-08-22 17:56 | NUR ---
end of shift. pain improving per pt. pt taking clear liquid diet without complaints. will continue to monitor.
[2024-08-22 19:14] VITALS: BP 134/59
[2024-08-22] MEDS ORDERED: TACROLIMUS ANHYDROUS PO SCH (22:35)
[2024-08-23 03:56] VITALS: BP 128/64
--- NOTE | 2024-08-23 05:00 | NUR ---
DECLINING LAB DRAW. PT ASKED PHELBOTOMIST TO TERMINATE LAB DRAW THIS AM. PT STATED HE IS "TIRED OF BEING POKED". EDUCATION PROVIDED ON IMPORTANCE OF LABS. PT CONTINUED TO DECLINE, CHANGE OF FACE TO RETAIL INVENTORY CONTROL CLERK RONDA. PT STILL DECLINING LABS THIS AM. ALYSSIA FROM LAB CALLED AND WANTED TO CLARIFY REFUSAL, CANCELED BMP AFTER DISCUSSING WITH RETAIL INVENTORY CONTROL CLERK. WILL NOTIFY ONCOMING RN OF SITUATION.
--- NOTE | 2024-08-23 07:15 | NUR ---
SHIFT SUMMARY NOC. PT ADMIT FOR SBO. PT A/O X4, PASSING GAS, REPORTED BM THIS SHIFT BUT NOT VISUALIZED BY STAFF. PT MEDICATED FOR PAIN WITH IV DILAUDID PRN PT REPORTED RELIEF OF SX. PT VOIDING URINE. PT HAS FLUIDS RUNNING PER EMAR. PT MAKES NEEDS KNOWN, CALL LIGHT IN REACH.
[2024-08-23 07:24] VITALS: BP 158/68
[2024-08-23] MEDS ORDERED: LOMOTIL 2.5-0.1 EACH PO (12:14)
[2024-08-23] MEDS ORDERED: DULOXETINE HCL60 M1 PO (12:15)
[2024-08-23] MEDS ORDERED: Methocarbamol500 MG PO (12:16)
[2024-08-23] MEDS ORDERED: NOVOLOG100 UNIT/2 SC (12:17)
[2024-08-23 14:53] VITALS: BP 130/60
--- NOTE | 2024-08-23 15:31 | NUR ---
DISCHARGE NOTE PT D/C HOME AT 1530. PT PROVIDED W/ VERBAL AND WRITTEN INSTRUCTIONS AND REPORTED UNDERSTANDING. PT A&OX4, VSS, AMB W/ ASSIST, TOLERATING PO, VOIDING, AND PAIN MANAGED. BELONGINGS WERE RETURNED AND PT ESCOURTED OUT VIA W/C BY JESSIE CONNOR.
== END 2024-08-23 15:32 | disposition home or self-care (01) | DRG 389 ==
LOC: ER 17:52 → SURS 22:27
PROVIDERS: Emergency Medicine; Student in an Organized Health Care Education/Training Program; ADMIT Internal Medicine
DX: K56.609 Unspecified intestinal obstruction, unspecified as to partial versus complete obstruction (principal); Z94.4 Liver transplant status; E78.5 Hyperlipidemia, unspecified; E11.65 Type 2 diabetes mellitus with hyperglycemia; D69.6 Thrombocytopenia, unspecified; E88.09 Other disorders of plasma-protein metabolism, not elsewhere classified; I25.10 Atherosclerotic heart disease of native coronary artery without angina pectoris; K21.9 Gastro-esophageal reflux disease without esophagitis; Z90.49 Acquired absence of other specified parts of digestive tract; Z85.72 Personal history of non-Hodgkin lymphomas; Z88.5 Allergy status to narcotic agent; Z88.8 Allergy status to other drugs, medicaments and biological substances; Z79.84 Long term (current) use of oral hypoglycemic drugs; Z79.4 Long term (current) use of insulin; Z85.05 Personal history of malignant neoplasm of liver; Z86.73 Personal history of transient ischemic attack (TIA), and cerebral infarction without residual deficits; Z79.52 Long term (current) use of systemic steroids; Z79.621 Long term (current) use of calcineurin inhibitor; Z95.1 Presence of aortocoronary bypass graft; Z79.891 Long term (current) use of opiate analgesic
CPT/HCPCS: 36415; 74177; 80053; 81003; 82947; 83690; 83735; 85025; 93005; 93010; 94762; 96374-59; 96375; 96376; 99285-25; A9270; J1171; J1650; J1815; J2270; J2405; J7030; J7507; Q9967

== ENCOUNTER 2024-09-12 08:00 | Day surgery (SDC) | payer OTHER, MEDICARE ==
[~2024-09-12 08:00] MED LIST changes: +DULOXETINE HCL60 M1 PO; +LOMOTIL 2.5-0.1 EACH PO; +Methocarbamol500 MG PO; +NOVOLOG100 UNIT/2 SC; -NS 1,000 ML IV SCH
== END 2024-09-12 23:00 | disposition home or self-care (01) ==
LOC: HBO 08:00
DX: E11.621 Type 2 diabetes mellitus with foot ulcer (principal); L89.623 Pressure ulcer of left heel, stage 3; E11.51 Type 2 diabetes mellitus with diabetic peripheral angiopathy without gangrene; I73.9 Peripheral vascular disease, unspecified; I87.2 Venous insufficiency (chronic) (peripheral)
CPT/HCPCS: 82947; G0277

== ENCOUNTER 2024-09-13 02:24 | Day surgery (SDC) | payer OTHER, MEDICARE ==
[2024-09-13] MEDS ORDERED: Lidocaine HCl 4% Cream 5 GM ONE (09:31)
== END 2024-09-13 23:00 | disposition home or self-care (01) ==
LOC: WOUND 02:24
DX: E11.621 Type 2 diabetes mellitus with foot ulcer (principal); L89.623 Pressure ulcer of left heel, stage 3; E11.51 Type 2 diabetes mellitus with diabetic peripheral angiopathy without gangrene; I87.2 Venous insufficiency (chronic) (peripheral)
CPT/HCPCS: 82947; A9270; G0463

== ENCOUNTER 2024-09-20 04:18 | Day surgery (SDC) | payer OTHER, MEDICARE ==
[2024-09-20] MEDS ORDERED: Lidocaine HCl 4% Cream 5 GM ONE (09:34)
== END 2024-09-20 22:00 | disposition home or self-care (01) ==
LOC: WOUND 04:18
DX: E11.621 Type 2 diabetes mellitus with foot ulcer (principal); L97.422 Non-pressure chronic ulcer of left heel and midfoot with fat layer exposed; L97.522 Non-pressure chronic ulcer of other part of left foot with fat layer exposed; E11.51 Type 2 diabetes mellitus with diabetic peripheral angiopathy without gangrene; I87.2 Venous insufficiency (chronic) (peripheral)
CPT/HCPCS: A9270

== ENCOUNTER 2024-09-21 01:40 | Day surgery (SDC) | payer MEDICARE, OTHER ==
[2024-09-21 10:36] VITALS: BP 141/67
== END 2024-09-21 10:35 | disposition home or self-care (01) ==
LOC: ATC 01:40
DX: C83.38 Diffuse large B-cell lymphoma, lymph nodes of multiple sites (principal); I10 Essential (primary) hypertension; E11.42 Type 2 diabetes mellitus with diabetic polyneuropathy; E78.5 Hyperlipidemia, unspecified; I25.10 Atherosclerotic heart disease of native coronary artery without angina pectoris; I11.9 Hypertensive heart disease without heart failure; J43.2 Centrilobular emphysema; Z79.01 Long term (current) use of anticoagulants; Z79.4 Long term (current) use of insulin; Z79.84 Long term (current) use of oral hypoglycemic drugs; Z79.899 Other long term (current) drug therapy; Z95.5 Presence of coronary angioplasty implant and graft
CPT/HCPCS: 96523; J1642

== ENCOUNTER 2024-09-27 00:41 | Day surgery (SDC) | payer OTHER, MEDICARE ==
[2024-09-27] MEDS ORDERED: Lidocaine HCl 4% Cream 5 GM ONE (09:10)
== END 2024-09-27 23:00 | disposition home or self-care (01) ==
LOC: WOUND 00:41
DX: E11.621 Type 2 diabetes mellitus with foot ulcer (principal); L97.422 Non-pressure chronic ulcer of left heel and midfoot with fat layer exposed; E11.51 Type 2 diabetes mellitus with diabetic peripheral angiopathy without gangrene; I87.2 Venous insufficiency (chronic) (peripheral); Z88.8 Allergy status to other drugs, medicaments and biological substances
CPT/HCPCS: A9270

== ENCOUNTER 2024-10-04 00:39 | Day surgery (SDC) | payer OTHER, MEDICARE ==
[2024-10-04] MEDS ORDERED: Lidocaine HCl 4% Cream 5 GM ONE (09:19)
== END 2024-10-04 23:21 | disposition home or self-care (01) ==
LOC: WOUND 00:39
DX: E11.621 Type 2 diabetes mellitus with foot ulcer (principal); L97.422 Non-pressure chronic ulcer of left heel and midfoot with fat layer exposed; E11.51 Type 2 diabetes mellitus with diabetic peripheral angiopathy without gangrene; I87.2 Venous insufficiency (chronic) (peripheral); Z88.8 Allergy status to other drugs, medicaments and biological substances
CPT/HCPCS: A9270

== ENCOUNTER 2024-10-11 01:18 | Day surgery (SDC) | payer OTHER, MEDICARE ==
[2024-10-11] MEDS ORDERED: Lidocaine HCl 4% Cream 5 GM ONE (09:24)
== END 2024-10-11 23:00 | disposition home or self-care (01) ==
LOC: WOUND 01:18
DX: E11.621 Type 2 diabetes mellitus with foot ulcer (principal); L97.422 Non-pressure chronic ulcer of left heel and midfoot with fat layer exposed; E11.51 Type 2 diabetes mellitus with diabetic peripheral angiopathy without gangrene; I87.2 Venous insufficiency (chronic) (peripheral); Z88.8 Allergy status to other drugs, medicaments and biological substances
CPT/HCPCS: A9270

== ENCOUNTER 2024-10-25 04:22 | Day surgery (SDC) | payer MEDICARE, OTHER ==
[2024-10-25] MEDS ORDERED: Lidocaine HCl 4% Cream 5 GM ONE (09:18)
== END 2024-10-25 23:00 | disposition home or self-care (01) ==
LOC: WOUND 04:22
DX: E11.621 Type 2 diabetes mellitus with foot ulcer (principal); L97.422 Non-pressure chronic ulcer of left heel and midfoot with fat layer exposed; L97.522 Non-pressure chronic ulcer of other part of left foot with fat layer exposed; E11.51 Type 2 diabetes mellitus with diabetic peripheral angiopathy without gangrene; E11.40 Type 2 diabetes mellitus with diabetic neuropathy, unspecified; I87.2 Venous insufficiency (chronic) (peripheral); Z94.4 Liver transplant status
CPT/HCPCS: A9270

== ENCOUNTER 2024-11-01 00:55 | Day surgery (SDC) | payer OTHER, MEDICARE ==
[2024-11-01] MEDS ORDERED: Lidocaine HCl 4% Cream 5 GM ONE (09:20)
== END 2024-11-01 23:00 | disposition home or self-care (01) ==
LOC: WOUND 00:55
DX: E11.621 Type 2 diabetes mellitus with foot ulcer (principal); L97.425 Non-pressure chronic ulcer of left heel and midfoot with muscle involvement without evidence of necrosis; L97.422 Non-pressure chronic ulcer of left heel and midfoot with fat layer exposed; L89.623 Pressure ulcer of left heel, stage 3; E11.51 Type 2 diabetes mellitus with diabetic peripheral angiopathy without gangrene; I87.2 Venous insufficiency (chronic) (peripheral)
CPT/HCPCS: A9270

== ENCOUNTER 2024-11-01 01:27 | Day surgery (SDC) | payer MEDICARE, OTHER ==
[2024-11-01 08:31] VITALS: BP 140/65
[2024-11-01 08:52] LABS: BASOPHILS ABSOLUTE AUTO 0.03 K/mm3 (0.00-0.23); BASOPHILS PERCENT AUTO 1 % (0-2); EOSINOPHILS ABSOLUTE AUTO 0.13 K/mm3 (0.00-0.68); EOSINOPHILS PERCENT AUTO 2 % (0-6); Hematocrit 40.5 % (37.0-53.0); Hemoglobin 12.6 g/dL (13.5-17.5); IMMATURE GRAN ABSOLUTE AUTO 0.03 K/mm3 (0.00-0.10); IMMATURE GRAN PERCENT AUTO 1 % (0-1); LYMPHOCYTES ABSOLUTE AUTO 1.11 K/mm3 (0.84-5.20); LYMPHOCYTES PERCENT AUTO 18 % (21-46); MONOCYTES ABSOLUTE AUTO 0.49 K/mm3 (0.16-1.47); MONOCYTES PERCENT AUTO 8 % (4-13); Mean Corpuscular HGB Conc 31.1 g/dL (31.5-36.5); Mean Corpuscular Volume 89 fL (80-100); NEUTROPHILS ABSOLUTE AUTO 4.49 K/mm3 (1.96-9.15); NEUTROPHILS PERCENT AUTO 71 % (41-73); NRBC ABSOLUTE 0.00 K/mm3 (0.00-0.02); NRBC Auto 0.0 /100 WBC (0.0-0.2); Platelet Count 86 K/mm3 (150-400); RDW Coefficient Variation 14.6 % (11.7-14.2); RDW Standard Deviation 47.6 fL (35.1-46.3)
[2024-11-01 09:32] LABS: Alanine Aminotransfer (ALT/SGP 44 U/L (12-78); Albumin, Blood 2.9 g/dL (3.4-5.0); Albumin/Globulin Ratio 0.7 (0.8-1.8); Anion Gap 2 mmol/L (3-11); Aspartate Aminotrans (AST/SGOT 36 U/L (12-37); Bilirubin, Total 0.4 mg/dL (0.1-1.0); Blood Urea Nitrogen 16 mg/dL (8-24); CHOL/HDL RATIO 1.6; CO2, Blood 28 mmol/L (21-32); Calcium, Blood 8.6 mg/dL (8.5-10.1); Chloride, Blood 107 mmol/L (98-108); Cholesterol 119 mg/dL (50-200); Creatinine, Blood 0.68 mg/dL (0.60-1.20); Globulin, Blood 4.2 g/dL (2.2-4.0); Glucose, Blood 143 mg/dL (70-99); HDL Cholesterol 76 mg/dL (>39); LDL/HDL RATIO 0.2; Lactate Dehydrogenase (Ld),Bld 169 U/L (100-240); Low Density Lipoprotein Chol 19 mg/dL (0-110); Potassium, Blood 4.2 mmol/L (3.5-5.5); Prostate Specific Antigen 1.300 ng/mL (0.000-4.000); Sodium, Blood 133 mmol/L (136-145); Thyroid Stimulating Hormone 3.990 uIU/mL (0.360-4.800); Total Protein, Blood 7.1 g/dL (6.4-8.2); Triglycerides 121 mg/dL (30-160); Very Low Density Lipoprot Chol 24 mg/dL (6-32)
[2024-11-03 12:50] LABS: TACROLIMUS BY HPLC-MS/MS 2.3 ng/mL
== END 2024-11-01 08:44 | disposition home or self-care (01) ==
LOC: ATC 01:27
PROVIDERS: Family Medicine
DX: C83.38 Diffuse large B-cell lymphoma, lymph nodes of multiple sites (principal); I10 Essential (primary) hypertension; E78.5 Hyperlipidemia, unspecified; I25.10 Atherosclerotic heart disease of native coronary artery without angina pectoris; J43.2 Centrilobular emphysema; E11.621 Type 2 diabetes mellitus with foot ulcer; L97.425 Non-pressure chronic ulcer of left heel and midfoot with muscle involvement without evidence of necrosis; L89.623 Pressure ulcer of left heel, stage 3; E11.51 Type 2 diabetes mellitus with diabetic peripheral angiopathy without gangrene; I87.2 Venous insufficiency (chronic) (peripheral); L97.422 Non-pressure chronic ulcer of left heel and midfoot with fat layer exposed; Z79.899 Other long term (current) drug therapy; Z88.8 Allergy status to other drugs, medicaments and biological substances; Z91.041 Radiographic dye allergy status; Z86.73 Personal history of transient ischemic attack (TIA), and cerebral infarction without residual deficits; Z87.891 Personal history of nicotine dependence; Z79.02 Long term (current) use of antithrombotics/antiplatelets; Z79.4 Long term (current) use of insulin; Z79.621 Long term (current) use of calcineurin inhibitor; Z79.84 Long term (current) use of oral hypoglycemic drugs; Z94.4 Liver transplant status; Z95.1 Presence of aortocoronary bypass graft; Z96.652 Presence of left artificial knee joint
CPT/HCPCS: 36591; 80053; 80061; 80197; 82607; 83036; 83615; 84153; 84436; 84443; 85025; A9270; J1642

== ENCOUNTER 2024-11-08 01:03 | Day surgery (SDC) | payer MEDICARE, OTHER ==
[2024-11-08] MEDS ORDERED: Lidocaine HCl 4% Cream 5 GM ONE (09:36)
== END 2024-11-08 23:00 | disposition home or self-care (01) ==
LOC: WOUND 01:03
DX: E11.621 Type 2 diabetes mellitus with foot ulcer (principal); L97.425 Non-pressure chronic ulcer of left heel and midfoot with muscle involvement without evidence of necrosis; L97.522 Non-pressure chronic ulcer of other part of left foot with fat layer exposed; E11.51 Type 2 diabetes mellitus with diabetic peripheral angiopathy without gangrene; E11.42 Type 2 diabetes mellitus with diabetic polyneuropathy; I87.2 Venous insufficiency (chronic) (peripheral)
CPT/HCPCS: A9270

== ENCOUNTER 2024-11-15 01:16 | Day surgery (SDC) | payer OTHER, MEDICARE ==
[2024-11-15] MEDS ORDERED: Lidocaine HCl 4% Cream 5 GM ONE (10:14)
== END 2024-11-15 23:00 | disposition home or self-care (01) ==
LOC: WOUND 01:16
DX: E11.621 Type 2 diabetes mellitus with foot ulcer (principal); L97.425 Non-pressure chronic ulcer of left heel and midfoot with muscle involvement without evidence of necrosis; L97.422 Non-pressure chronic ulcer of left heel and midfoot with fat layer exposed; E11.51 Type 2 diabetes mellitus with diabetic peripheral angiopathy without gangrene; I87.2 Venous insufficiency (chronic) (peripheral); D84.9 Immunodeficiency, unspecified; Z94.4 Liver transplant status
CPT/HCPCS: A9270

== ENCOUNTER 2024-11-21 00:57 | Day surgery (SDC) | payer MEDICARE, OTHER ==
[2024-11-21 13:25] VITALS: BP 127/57
--- NOTE | 2024-11-21 13:54 | NUR ---
PT ARRIVED AT 1321 TO HAVE PORT ACCESSED FOR A CT SCAN UPSTAIRS SCHEDULED AT 1430. PORT ACCESSED AND FLUSHED WITH 10ML NS. PT SENT OUT WITH VIA WHEELCHAIR TO HEAD TO IMAGING DEPT. PT TO RETURN AFTER CT TO HAVE HUTSON NEEDLE DEACCESSED.
--- NOTE | 2024-11-21 13:56 | NUR ---
PT LEFT THE DEPT AT 1328 TO HEAD TO IMAGING DEPT FOR CT
--- NOTE | 2024-11-21 17:05 | NUR ---
PT ARRIVED AT [address] SCAN FOR FLUSH AND DEACCESS OF MEDIPORT. DONE AND DISCHARGED HOME AT 1530
== END 2024-11-21 15:30 | disposition home or self-care (01) ==
LOC: ATC 00:57
DX: Z45.2 Encounter for adjustment and management of vascular access device (principal); C83.38 Diffuse large B-cell lymphoma, lymph nodes of multiple sites; I10 Essential (primary) hypertension; I25.10 Atherosclerotic heart disease of native coronary artery without angina pectoris; E11.9 Type 2 diabetes mellitus without complications; K74.60 Unspecified cirrhosis of liver; E78.5 Hyperlipidemia, unspecified; J43.2 Centrilobular emphysema; C83.33 Diffuse large B-cell lymphoma, intra-abdominal lymph nodes; Z87.891 Personal history of nicotine dependence; Z91.041 Radiographic dye allergy status; Z88.8 Allergy status to other drugs, medicaments and biological substances; Z90.49 Acquired absence of other specified parts of digestive tract
CPT/HCPCS: 71260; 73630; 74177; 96523; J1642; Q9967

== ENCOUNTER 2024-11-22 04:37 | Day surgery (SDC) | payer OTHER, MEDICARE ==
[2024-11-22] MEDS ORDERED: Lidocaine HCl 4% Cream 5 GM ONE (09:44)
== END 2024-11-22 23:01 | disposition home or self-care (01) ==
LOC: WOUND 04:37
DX: E11.621 Type 2 diabetes mellitus with foot ulcer (principal); L97.423 Non-pressure chronic ulcer of left heel and midfoot with necrosis of muscle; L89.623 Pressure ulcer of left heel, stage 3; E11.51 Type 2 diabetes mellitus with diabetic peripheral angiopathy without gangrene; I87.2 Venous insufficiency (chronic) (peripheral)
CPT/HCPCS: A9270

== ENCOUNTER → 2025-02-16 | Outpatient (CLI) | payer MEDICARE, OTHER ==
[2025-02-17 00:36] LABS: Campylobacter Sp Not Detected (NOT DETECT)
[2025-02-17 00:37] LABS: E. Coli O157 Not Detected (NOT DETECT); Enteroaggregative E. coli-EAEC Not Detected (NOT DETECT); Enteropathogenic E. coli-EPEC Not Detected (NOT DETECT); Enterotoxigenic E. coli-ETEC Not Detected (NOT DETECT); Salmonella Sp Not Detected (NOT DETECT); Shiga Toxin-prod E. coli-STEC Not Detected (NOT DETECT); Shigella/Enteroin E. coli-EIEC Not Detected (NOT DETECT); Vibrio Sp Not Detected (NOT DETECT)
== END ==
LOC: LAB SHORT 15:15 → LAB 15:15
PROVIDERS: Family Medicine
DX: R19.7 Diarrhea, unspecified (principal)
CPT/HCPCS: 87324; 87507

== ENCOUNTER 2025-02-23 03:56 | Day surgery (SDC) | payer MEDICARE, OTHER ==
[2025-02-23 11:20] VITALS: BP 157/76
== END 2025-02-23 11:30 | disposition home or self-care (01) ==
LOC: ATC 03:56
DX: Z45.2 Encounter for adjustment and management of vascular access device (principal); C83.38 Diffuse large B-cell lymphoma, lymph nodes of multiple sites; I25.10 Atherosclerotic heart disease of native coronary artery without angina pectoris; E11.9 Type 2 diabetes mellitus without complications; I10 Essential (primary) hypertension; E78.5 Hyperlipidemia, unspecified; J43.2 Centrilobular emphysema; Z79.899 Other long term (current) drug therapy; Z88.8 Allergy status to other drugs, medicaments and biological substances; Z91.041 Radiographic dye allergy status; Z94.4 Liver transplant status; Z87.891 Personal history of nicotine dependence; Z90.49 Acquired absence of other specified parts of digestive tract
CPT/HCPCS: 96523; J1642